=== PATIENT | male | born 1950 | race Caucasian/White ===

== ENCOUNTER 2016-11-01 12:01 | Inpatient (IN) | payer OTHER ==
[2016-11-01 12:36] VITALS: BMI 25.0
--- NOTE | 2016-11-01 14:38 | HP ---
CIWA Score - CIWA Score Nausea/Vomitin-No Nausea/No Vomiting Muscle Tremors: 4-Moderate,w/Arms Extend Anxiety: 4-Mod. Anxious/Guarded Agitation: 4-Moderately Restless Paroxysmal Sweats: 3 Orientation: 0-Oriented Tacttile Disturbances: 0-None Auditory Disturbances: 0-None Visual Disturbances: 0-None Headache: 1-Very Mild CIWA-Ar Total Score: 16 Admission ROS BHS - HPI Chief Complaint: I am here to detox. Allergies/Adverse Reactions: Allergies Allergy/AdvReac Type Severity Reaction Status Date / Time No Known Allergies Allergy Verified 11/01/16 12:45 History of Present Illness: pt is a 66yr old male with a history of alcohol dependence seeking detox for treatment. Exam Limitations: No Limitations - Ebola screening Have you traveled outside of the country in the last 21 days: No Have you had contact with anyone from an Ebola affected area: No Have you been sick,other than usual withdrawal symptoms: No Do you have a fever: No - Review of Systems Constitutional: Chills, Diaphoresis, Loss of Appetite, Night Sweats, Unintentional Wgt. Loss EENT: reports: No Symptoms Reported Respiratory: reports: No Symptoms reported Cardiac: reports: No Symptoms Reported GI: reports: Poor Appetite, Poor Fluid Intake : reports: No Symptoms Reported Musculoskeletal: reports: No Symptoms Reported Integumentary: reports: Flushing, Sweating Neuro: reports: Tingling, Tremors Endocrine: reports: Excessive Sweating, Flushing, Intolerance to Cold, Intolerance to Heat Hematology: reports: No Symptoms Reported Psychiatric: reports: Judgement Intact, Orientated x3, Agitated, Anxious Other Systems: Reviewed and Negative Patient History - Patient Medical History Hx Anemia: No Hx Asthma: No Hx Chronic Obstructive Pulmonary Disease (COPD): No Hx Cancer: No Hx Cardiac Disorders: No Hx Congestive Heart Failure: No Hx Hypertension: Yes (lisinopril/ HTCZ 05/19.5) Hx Hypercholesterolemia: No Hx Pacemaker: No HX Cerebrovascular Accident: No Hx Seizures: No Hx Dementia: No Hx Diabetes: No Hx Gastrointestinal Disorders: No Hx Liver Disease: Yes (elevated LFTs) Hx Genitourinary Disorders: No Hx Sexually Transmitted Disorders: No Hx Renal Disease (ESRD): No Hx Thyroid Disease: No Hx Human Immunodeficiency Virus (HIV): No (NEGATIVE HX) Hx Hepatitis C: Yes (on treatment pt kem his own medicaiton) Hx Depression: No Hx Suicide Attempt: No (denies) Hx Bipolar Disorder: No Hx Schizophrenia: No - Patient Surgical History Past Surgical History: No Hx Neurologic Surgery: No Hx Cataract Extraction: No Hx Cardiac Surgery: No Hx Lung Surgery: No Hx Breast Surgery: No Hx Breast Biopsy: No Hx Abdominal Surgery: No Hx Appendectomy: No Hx Cholecystectomy: No Hx Genitourinary Surgery: No Hx Section: No Hx Orthopedic Surgery: No Anesthesia Reaction: No - PPD History Previous Implant?: Yes Documented Results: Negative w/o proof Implanted On Prior R Admission?: Yes PPD to be Administered?: Yes - Reproductive History Patient is a Female of Child Bearing Age (11 -55 yrs old): No - Smoking Cessation Smoking history: Current every day smoker Have you smoked in the past 12 months: Yes Aproximately how many cigarettes per day: 20 Hx Chewing Tobacco Use: No Initiated information on smoking cessation: Yes 'Breaking Loose' booklet given: 11/01/16 - Substance & Tx. History Hx Alcohol Use: Yes Hx Substance Use: Yes Substance Use Type: Alcohol, Marijuana - Substances Abused Alcohol Route: Oral Frequency: Daily Amount used: beer(6-24oz cans) Age of first use: 26 Date of Last Use: 11/01/16 Marijuana/Hashish Route: Smoking Frequency: Daily Amount used: $5 Age of first use: 26 Date of Last Use: 10/31/16 Family Disease History - Family Disease History Family Disease History: Heart Disease: Father ([place]), Other: Mother (, old age) Admission Physical Exam S - Vital Signs Vital Signs: Vital Signs - 24 hr 11/01/16 12:34 Temperature 97.7 F Pulse Rate 72 Respiratory 18 Rate Blood Pressure 147/82 - Physical General Appearance: Yes: Appropriately Dressed, Moderate Distress, Tremorous, Irritable, Sweating, Anxious HEENTM: Yes: Normal Voice Respiratory: Yes: Lungs Clear, Normal Breath Sounds, No Respiratory Distress Neck: Yes: No masses,lesions,Nodules Breast: Yes: Within Normal Limits Cardiology: Yes: Regular Rhythm, Regular Rate, S1, S2 Abdominal: Yes: Normal Bowel Sounds, Non Tender, Soft Genitourinary: Yes: Within Normal Limits Back: Yes: Normal Inspection Musculoskeletal: Yes: full range of Motion Extremities: Yes: Normal Capillary Refill, Non-Tender, Tremors Neurological: Yes: Fully Oriented, Alert, Normal Response Integumentary: Yes: Normal Color Lymphatic: Yes: Within Normal Limits - Diagnostic (1) Alcohol dependence with uncomplicated withdrawal Current Visit: Yes Status: Chronic (2) Nicotine dependence Current Visit: Yes Status: Chronic Qualifiers: Nicotine product type: cigarettes Substance use status: uncomplicated Qualified Code(s): F17.210 - Nicotine dependence, cigarettes, uncomplicated (3) Hepatitis-C Current Visit: Yes Status: Chronic Qualifiers: Viral hepatitis chronicity: chronic Hepatic coma status: without hepatic coma Qualified Code(s): B18.2 - Chronic viral hepatitis C Comment: pt brought in his own medication to continue hep c treatment. Cleared for Admission [facility] - Detox or Rehab [facility] Level of Care: Medically Managed Detox Regimen/Protocol: Librium [facility] Breath Alcohol Content Breath Alcohol Content: 0 Urine Drug Screen - Results Drug Screen Negative: No Urine Drug Screen Results: THC-Marijuana
[2016-11-01] MEDS ORDERED: IBUPROFEN 400 MG TABLET (FP) PO PRN (14:40)
[2016-11-01] MEDS ORDERED: MAG HYDROX/AL HYDROX/SIMETH 30 ML UNIT-DOSE CUP PO PRN (14:40)
[2016-11-01] MEDS ORDERED: guaiFENesin/D-METHORPHAN HB 10 ML UNIT-DOSE CUPS PO PRN (14:40)
[2016-11-01] MEDS ORDERED: NICOTINE POLACRILEX 4 MG GUM BUC PRN (14:40)
[2016-11-01] MEDS ORDERED: MAGNESIUM HYDROX 2400MG/30ML ORAL SUSPENSION 30 ML CUP PO PRN (14:40)
[2016-11-01] MEDS ORDERED: MAGNESIUM CITRATE 300 ML BOTTLE PO PRN (14:40)
[2016-11-01] MEDS ORDERED: chlordiazePOXIDE HCL 25 MG CAPSULE PO PRN (14:40)
[2016-11-01] MEDS ORDERED: ACETAMINOPHEN 325 MG TABLET (FP) PO PRN (14:40)
[2016-11-01] MEDS ORDERED: P-EPHED 60MG/TRIPROLIDI 2.5MG TABLET PO PRN (14:40)
[2016-11-01] MEDS ORDERED: LOPERAMIDE HCL 2 MG CAPSULE PO PRN (14:40)
[2016-11-01] MEDS ORDERED: hydrOXYzine PAMOATE 50 MG CAPSULE (FP) PO PRN (14:40)
[2016-11-01] MEDS ORDERED: MENTHOL/PHENOL 1 EACH UD MM PRN (14:40)
[2016-11-01] MEDS ORDERED: chlordiazePOXIDE HCL 25 MG CAPSULE PO ONE (15:16)
[2016-11-01 17:09] LABS: URINE APPEARANCE CLEAR; URINE BILIRUBIN NEGATIVE (NEGATIVE); URINE BLOOD NEGATIVE (NEGATIVE); URINE COLOR YELLOW; URINE GLUCOSE (UA) NEGATIVE (NEGATIVE); URINE KETONE NEGATIVE (NEGATIVE); URINE LEUK ESTERASE NEGATIVE (NEGATIVE); URINE NITRITE NEGATIVE (NEGATIVE); URINE PROTEIN NEGATIVE (NEGATIVE); URINE UROBILINOGEN NEGATIVE E.U./dl (0.2-1.0)
[2016-11-01] MEDS: chlordiazePOXIDE HCL 25 MG CAPSULE PO SCH ×2 (17:14→22:33)
--- NOTE | 2016-11-01 19:13 | PN ---
BHS Progress Note Note: RECEIVED NURSE INFORMED REQUESTS NICOTINE PATCH 21 MG PATCH NICOTINE REPLACEMENT X 1 CONTINUE DETOX
[2016-11-01] MEDS: NICOTINE 21 MG/24 HOURS TOPICAL PATCH TD SCH (20:35)
[2016-11-01] MEDS: THIAMINE HCL 100 MG TABLET (FP) PO SCH (22:33)
[2016-11-02] MEDS: chlordiazePOXIDE HCL 25 MG CAPSULE PO SCH ×4 (05:16→22:28)
[2016-11-02] MEDS ORDERED: PATIENT'S OWN MEDICATION (NON-FORMULARY) (Lisinopril/Hydrochlorothiazide [Lisinopril-Hctz PO SCH (10:00)
[2016-11-02] MEDS ORDERED: NICOTINE 21 MG/24 HOURS TOPICAL PATCH TD SCH (10:00)
[2016-11-02 10:04] LABS: MCH 32.7 pg (25.7-33.7); MCHC 34.1 g/dl (32.0-35.9); MEAN CELL VOLUME 95.7 fl (80-96); MEAN PLT VOLUME 9.7 fl (7.5-11.1); PLATELET COUNT 156 K/MM3 (134-434); RDW 13.4 % (11.9-15.9)
[2016-11-02 10:09] LABS: ALBUMIN 3.4 g/dl (3.4-5.0); ALK PHOS 111 U/L (45-117); ANION GAP 10 (8-16); BILIRUBIN,TOTAL 0.8 mg/dL (0.2-1.0); CALCIUM 8.8 mg/dL (8.5-10.1); CO2 28 mmol/L (21-32); CREATININE 0.9 mg/dL (0.7-1.3); GLUCOSE,RANDOM 109 mg/dL (74-106); SGOT/AST 39 U/L (15-37); SGPT/ALT 42 U/L (12-78); TOT PROT 8.1 g/dl (6.4-8.2)
[2016-11-02] MEDS: PATIENT'S OWN MEDICATION (NON-FORMULARY) (Elbasvir/Grazoprevir [Zepatier 50-100 Mg Tablet] PO SCH (10:25)
[2016-11-02] MEDS: PRENATAL VITAMINS W/ FOLIC ACID TABLET (FP) PO SCH (10:25)
[2016-11-02] MEDS: HYDROCHLOROTHIAZIDE 12.5 MG CAPSULE (FP) PO SCH (10:25)
[2016-11-02] MEDS: LISINOPRIL 10 MG TABLET (FP) PO SCH (10:25)
--- NOTE | 2016-11-02 10:25 | PN ---
[facility] CIWA - CIWA Score Nausea/Vomitin-No Nausea/No Vomiting Muscle Tremors: 4-Moderate,w/Arms Extend Anxiety: 4-Mod. Anxious/Guarded Agitation: 4-Moderately Restless Paroxysmal Sweats: 1-Minimal Palms Moist Orientation: 0-Oriented Tacttile Disturbances: 3-Moderate Itch/Numb/Burn Auditory Disturbances: 0-None Visual Disturbances: 0-None Headache: 0-None Present CIWA-Ar Total Score: 16 BHS Progress Note (SOAP) Subjective: DECREASED ANXIETY,TREMORS,SWEATS. Objective: 11/02/16 10:24 Vital Signs Temperature 98.1 F 11/02/16 06:10 Pulse Rate 59 L 11/02/16 07:04 Respiratory Rate 16 11/02/16 06:10 Blood Pressure 129/70 11/02/16 07:04 O2 Sat by Pulse Oximetry (%) Laboratory Last Values Sodium 138 mmol/L (136-145) 11/02/16 06:00 Potassium 3.6 mmol/L (3.5-5.1) 11/02/16 06:00 Chloride 100 mmol/L (98-107) 11/02/16 06:00 Carbon Dioxide 28 mmol/L (21-32) 11/02/16 06:00 Anion Gap 10 (8-16) 11/02/16 06:00 BUN 7 mg/dL (7-18) 11/02/16 06:00 Creatinine 0.9 mg/dL (0.7-1.3) 11/02/16 06:00 Creat Clearance w eGFR > 60 (>60) 11/02/16 06:00 Random Glucose 109 mg/dL (74-106) H D 11/02/16 06:00 Calcium 8.8 mg/dL (8.5-10.1) 11/02/16 06:00 Total Bilirubin 0.8 mg/dL (0.2-1.0) 11/02/16 06:00 AST 39 U/L (15-37) H D 11/02/16 06:00 ALT 42 U/L (12-78) D 11/02/16 06:00 Alkaline Phosphatase 111 U/L (45-117) 11/02/16 06:00 Total Protein 8.1 g/dl (6.4-8.2) 11/02/16 06:00 Albumin 3.4 g/dl (3.4-5.0) D 11/02/16 06:00 Urine Color Yellow 11/01/16 14:00 Urine Appearance Clear 11/01/16 14:00 Urine pH 7.0 (5.0-8.0) 11/01/16 14:00 Ur Specific [place] 1.011 (1.001-1.035) 11/01/16 14:00 Urine Protein Negative (NEGATIVE) 11/01/16 14:00 Urine Glucose (UA) Negative (NEGATIVE) 11/01/16 14:00 Urine Ketones Negative (NEGATIVE) 11/01/16 14:00 Urine Blood Negative (NEGATIVE) 11/01/16 14:00 Urine Nitrite Negative (NEGATIVE) 11/01/16 14:00 Urine Bilirubin Negative (NEGATIVE) 11/01/16 14:00 Urine Urobilinogen Negative E.U./dl (0.2-1.0) 11/01/16 14:00 Ur Leukocyte Esterase Negative (NEGATIVE) 11/01/16 14:00 Assessment: 11/02/16 10:25 WITHDRAWAL SX Plan: CONTINUE DETOX
[2016-11-02] MEDS: NICOTINE 21 MG/24 HOURS TOPICAL PATCH TD SCH (10:26)
--- NOTE | 2016-11-02 13:43 | EKG ---
Test Reason : Blood Pressure : / mmHG Vent. Rate : 071 BPM Atrial Rate : 071 BPM P-R Int : 146 ms QRS Dur : 108 ms QT Int : 424 ms P-R-T Axes : 082 069 071 degrees QTc Int : 460 ms NORMAL SINUS RHYTHM POSSIBLE LEFT ATRIAL ENLARGEMENT INCOMPLETE RIGHT BUNDLE BRANCH BLOCK BORDERLINE ECG NO PREVIOUS ECGS AVAILABLE Confirmed by ESTEBAN COCHRAN, STACIA ([id number]) on 11/02/2016 1:42:57 PM Referred By: Harshal Castillo Confirmed By:STACIA ORELLANA MD
[2016-11-02] MEDS: THIAMINE HCL 100 MG TABLET (FP) PO SCH (22:28)
[2016-11-03] MEDS: chlordiazePOXIDE HCL 25 MG CAPSULE PO SCH ×2 (05:49→10:33)
[2016-11-03] MEDS: PRENATAL VITAMINS W/ FOLIC ACID TABLET (FP) PO SCH (10:33)
[2016-11-03] MEDS: PATIENT'S OWN MEDICATION (NON-FORMULARY) (Elbasvir/Grazoprevir [Zepatier 50-100 Mg Tablet] PO SCH (10:33)
[2016-11-03] MEDS: HYDROCHLOROTHIAZIDE 12.5 MG CAPSULE (FP) PO SCH (10:33)
[2016-11-03] MEDS: LISINOPRIL 10 MG TABLET (FP) PO SCH (10:33)
[2016-11-03] MEDS: NICOTINE 21 MG/24 HOURS TOPICAL PATCH TD SCH (10:34)
--- NOTE | 2016-11-03 11:47 | PN ---
[facility] CIWA - CIWA Score Nausea/Vomitin-No Nausea/No Vomiting Muscle Tremors: 4-Moderate,w/Arms Extend Anxiety: 4-Mod. Anxious/Guarded Agitation: 4-Moderately Restless Paroxysmal Sweats: 1-Minimal Palms Moist Orientation: 0-Oriented Tacttile Disturbances: 3-Moderate Itch/Numb/Burn Auditory Disturbances: 0-None Visual Disturbances: 0-None Headache: 0-None Present CIWA-Ar Total Score: 16 S Progress Note (SOAP) Subjective: DECREASED ANXIETY,SWEATS. DETOX PROCEEDING WELL. Objective: 11/03/16 11:46 Vital Signs Temperature 95.2 F L 11/03/16 09:08 Pulse Rate 77 11/03/16 09:08 Respiratory Rate 20 11/03/16 09:08 Blood Pressure 126/81 11/03/16 09:08 O2 Sat by Pulse Oximetry (%) Laboratory Last Values WBC 8.0 K/mm3 (4.0-10.0) D 11/02/16 06:00 RBC 4.76 M/mm3 (4.00-5.60) 11/02/16 06:00 Hgb 15.6 GM/dL (11.7-16.9) 11/02/16 06:00 Hct 45.6 % (35.4-49) 11/02/16 06:00 MCV 95.7 fl (80-96) 11/02/16 06:00 MCHC 34.1 g/dl (32.0-35.9) 11/02/16 06:00 RDW 13.4 % (11.9-15.9) 11/02/16 06:00 Plt Count 156 K/MM3 (134-434) 11/02/16 06:00 MPV 9.7 fl (7.5-11.1) 11/02/16 06:00 Sodium 138 mmol/L (136-145) 11/02/16 06:00 Potassium 3.6 mmol/L (3.5-5.1) 11/02/16 06:00 Chloride 100 mmol/L (98-107) 11/02/16 06:00 Carbon Dioxide 28 mmol/L (21-32) 11/02/16 06:00 Anion Gap 10 (8-16) 11/02/16 06:00 BUN 7 mg/dL (7-18) 11/02/16 06:00 Creatinine 0.9 mg/dL (0.7-1.3) 11/02/16 06:00 Creat Clearance w eGFR > 60 (>60) 11/02/16 06:00 Random Glucose 109 mg/dL (74-106) H D 11/02/16 06:00 Calcium 8.8 mg/dL (8.5-10.1) 11/02/16 06:00 Total Bilirubin 0.8 mg/dL (0.2-1.0) 11/02/16 06:00 AST 39 U/L (15-37) H D 11/02/16 06:00 ALT 42 U/L (12-78) D 11/02/16 06:00 Alkaline Phosphatase 111 U/L (45-117) 11/02/16 06:00 Total Protein 8.1 g/dl (6.4-8.2) 11/02/16 06:00 Albumin 3.4 g/dl (3.4-5.0) D 11/02/16 06:00 Urine Color Yellow 11/01/16 14:00 Urine Appearance Clear 11/01/16 14:00 Urine pH 7.0 (5.0-8.0) 11/01/16 14:00 Ur Specific [place] 1.011 (1.001-1.035) 11/01/16 14:00 Urine Protein Negative (NEGATIVE) 11/01/16 14:00 Urine Glucose (UA) Negative (NEGATIVE) 11/01/16 14:00 Urine Ketones Negative (NEGATIVE) 11/01/16 14:00 Urine Blood Negative (NEGATIVE) 11/01/16 14:00 Urine Nitrite Negative (NEGATIVE) 11/01/16 14:00 Urine Bilirubin Negative (NEGATIVE) 11/01/16 14:00 Urine Urobilinogen Negative E.U./dl (0.2-1.0) 11/01/16 14:00 Ur Leukocyte Esterase Negative (NEGATIVE) 11/01/16 14:00 RPR Titer Nonreactive (NONREACTIVE) 11/02/16 06:00 Assessment: 11/03/16 11:46 WITHDRAWAL SX Plan: CONTINUE DETOX
[2016-11-03] MEDS: chlordiazePOXIDE 5 MG CAPSULE PO SCH ×2 (17:41→22:32)
[2016-11-03] MEDS: diphenhydrAMINE HCL 50 MG CAPSULE PO PRN (22:32)
[2016-11-03] MEDS: THIAMINE HCL 100 MG TABLET (FP) PO SCH (22:32)
[2016-11-04] MEDS: chlordiazePOXIDE 5 MG CAPSULE PO SCH ×2 (06:02→10:22)
[2016-11-04] MEDS: PRENATAL VITAMINS W/ FOLIC ACID TABLET (FP) PO SCH (10:22)
[2016-11-04] MEDS: PATIENT'S OWN MEDICATION (NON-FORMULARY) (Elbasvir/Grazoprevir [Zepatier 50-100 Mg Tablet] PO SCH (10:22)
[2016-11-04] MEDS: NICOTINE 21 MG/24 HOURS TOPICAL PATCH TD SCH (10:22)
[2016-11-04] MEDS: LISINOPRIL 10 MG TABLET (FP) PO SCH (10:22)
[2016-11-04] MEDS: HYDROCHLOROTHIAZIDE 12.5 MG CAPSULE (FP) PO SCH (10:22)
--- NOTE | 2016-11-04 15:23 | PN ---
BHS Progress Note (SOAP) Subjective: Sweating,interrupted sleep,restless Objective: 11/04/16 15:21 Vital Signs - 8 hr 11/04/16 11/04/16 09:25 14:15 Temperature 95.8 F L 96.7 F L Pulse Rate 66 66 Respiratory 18 18 Rate Blood Pressure 138/87 141/80 Laboratory Last Values WBC 8.0 K/mm3 (4.0-10.0) D 11/02/16 06:00 RBC 4.76 M/mm3 (4.00-5.60) 11/02/16 06:00 Hgb 15.6 GM/dL (11.7-16.9) 11/02/16 06:00 Hct 45.6 % (35.4-49) 11/02/16 06:00 MCV 95.7 fl (80-96) 11/02/16 06:00 MCHC 34.1 g/dl (32.0-35.9) 11/02/16 06:00 RDW 13.4 % (11.9-15.9) 11/02/16 06:00 Plt Count 156 K/MM3 (134-434) 11/02/16 06:00 MPV 9.7 fl (7.5-11.1) 11/02/16 06:00 Sodium 138 mmol/L (136-145) 11/02/16 06:00 Potassium 3.6 mmol/L (3.5-5.1) 11/02/16 06:00 Chloride 100 mmol/L (98-107) 11/02/16 06:00 Carbon Dioxide 28 mmol/L (21-32) 11/02/16 06:00 Anion Gap 10 (8-16) 11/02/16 06:00 BUN 7 mg/dL (7-18) 11/02/16 06:00 Creatinine 0.9 mg/dL (0.7-1.3) 11/02/16 06:00 Creat Clearance w eGFR > 60 (>60) 11/02/16 06:00 Random Glucose 109 mg/dL (74-106) H D 11/02/16 06:00 Calcium 8.8 mg/dL (8.5-10.1) 11/02/16 06:00 Total Bilirubin 0.8 mg/dL (0.2-1.0) 11/02/16 06:00 AST 39 U/L (15-37) H D 11/02/16 06:00 ALT 42 U/L (12-78) D 11/02/16 06:00 Alkaline Phosphatase 111 U/L (45-117) 11/02/16 06:00 Total Protein 8.1 g/dl (6.4-8.2) 11/02/16 06:00 Albumin 3.4 g/dl (3.4-5.0) D 11/02/16 06:00 Urine Color Yellow 11/01/16 14:00 Urine Appearance Clear 11/01/16 14:00 Urine pH 7.0 (5.0-8.0) 11/01/16 14:00 Ur Specific [place] 1.011 (1.001-1.035) 11/01/16 14:00 Urine Protein Negative (NEGATIVE) 11/01/16 14:00 Urine Glucose (UA) Negative (NEGATIVE) 11/01/16 14:00 Urine Ketones Negative (NEGATIVE) 11/01/16 14:00 Urine Blood Negative (NEGATIVE) 11/01/16 14:00 Urine Nitrite Negative (NEGATIVE) 11/01/16 14:00 Urine Bilirubin Negative (NEGATIVE) 11/01/16 14:00 Urine Urobilinogen Negative E.U./dl (0.2-1.0) 11/01/16 14:00 Ur Leukocyte Esterase Negative (NEGATIVE) 11/01/16 14:00 RPR Titer Nonreactive (NONREACTIVE) 11/02/16 06:00 labs noted Assessment: 11/04/16 15:22 Withdrawal sx. Plan: Continue detox
[2016-11-04] MEDS: chlordiazePOXIDE HCL 10 MG CAPSULE PO SCH ×2 (17:20→22:41)
[2016-11-04] MEDS: THIAMINE HCL 100 MG TABLET (FP) PO SCH (22:41)
[2016-11-04] MEDS: diphenhydrAMINE HCL 50 MG CAPSULE PO PRN (22:41)
[2016-11-05] MEDS: chlordiazePOXIDE HCL 10 MG CAPSULE PO SCH (05:22)
[2016-11-05 06:37] VITALS: TEMP 96.2
[2016-11-05 07:36] VITALS: BP 134/76; PULSE 52
--- NOTE | 2016-11-05 13:53 | DS ---
[facility] Detox Discharge Summary Admission Date: 11/01/16 Discharge Date: 11/05/16 - History Present History: Alcohol Dependence Additional Comments: ADVISED PATIENT TO FOLLOW-UP WITH [facility] / REHAB MEDICAL PROVIDER AFTER DISCHARGE FROM DETOX FOR GENERAL MEDICAL ASSESSMENT AND FOR ANY ABNORMAL ADMISSION LAB VALUES. Pertinent Past History: Hep C, HTN. - Physical Exam Results Vital Signs: Vital Signs Temperature 96.2 F L 11/05/16 06:37 Pulse Rate 52 L 11/05/16 07:36 Respiratory Rate 18 11/05/16 06:37 Blood Pressure 134/76 11/05/16 07:36 O2 Sat by Pulse Oximetry (%) Pertinent Admission Physical Exam Findings: WITHDRAWAL SYMPTOMS. Laboratory Last Values WBC 8.0 K/mm3 (4.0-10.0) D 11/02/16 06:00 RBC 4.76 M/mm3 (4.00-5.60) 11/02/16 06:00 Hgb 15.6 GM/dL (11.7-16.9) 11/02/16 06:00 Hct 45.6 % (35.4-49) 11/02/16 06:00 MCV 95.7 fl (80-96) 11/02/16 06:00 MCHC 34.1 g/dl (32.0-35.9) 11/02/16 06:00 RDW 13.4 % (11.9-15.9) 11/02/16 06:00 Plt Count 156 K/MM3 (134-434) 11/02/16 06:00 MPV 9.7 fl (7.5-11.1) 11/02/16 06:00 Sodium 138 mmol/L (136-145) 11/02/16 06:00 Potassium 3.6 mmol/L (3.5-5.1) 11/02/16 06:00 Chloride 100 mmol/L (98-107) 11/02/16 06:00 Carbon Dioxide 28 mmol/L (21-32) 11/02/16 06:00 Anion Gap 10 (8-16) 11/02/16 06:00 BUN 7 mg/dL (7-18) 11/02/16 06:00 Creatinine 0.9 mg/dL (0.7-1.3) 11/02/16 06:00 Creat Clearance w eGFR > 60 (>60) 11/02/16 06:00 Random Glucose 109 mg/dL (74-106) H D 11/02/16 06:00 Calcium 8.8 mg/dL (8.5-10.1) 11/02/16 06:00 Total Bilirubin 0.8 mg/dL (0.2-1.0) 11/02/16 06:00 AST 39 U/L (15-37) H D 11/02/16 06:00 ALT 42 U/L (12-78) D 11/02/16 06:00 Alkaline Phosphatase 111 U/L (45-117) 11/02/16 06:00 Total Protein 8.1 g/dl (6.4-8.2) 11/02/16 06:00 Albumin 3.4 g/dl (3.4-5.0) D 11/02/16 06:00 Urine Color Yellow 11/01/16 14:00 Urine Appearance Clear 11/01/16 14:00 Urine pH 7.0 (5.0-8.0) 11/01/16 14:00 Ur Specific [place] 1.011 (1.001-1.035) 11/01/16 14:00 Urine Protein Negative (NEGATIVE) 11/01/16 14:00 Urine Glucose (UA) Negative (NEGATIVE) 11/01/16 14:00 Urine Ketones Negative (NEGATIVE) 11/01/16 14:00 Urine Blood Negative (NEGATIVE) 11/01/16 14:00 Urine Nitrite Negative (NEGATIVE) 11/01/16 14:00 Urine Bilirubin Negative (NEGATIVE) 11/01/16 14:00 Urine Urobilinogen Negative E.U./dl (0.2-1.0) 11/01/16 14:00 Ur Leukocyte Esterase Negative (NEGATIVE) 11/01/16 14:00 RPR Titer Nonreactive (NONREACTIVE) 11/02/16 06:00 LABS NOTED. - Treatment Hospital Course: Detox Protocol Followed, Detoxed Safely, Responded well, Discharged Condition Good Patient has Accepted a Rehab Referral to: NO - PT. ELECTING TO GO HOME AT THIS TIME. 12-STEP / AA PROGRAM RECOMMENDED - Medication Discharge Medications: Ambulatory Orders Elbasvir/Grazoprevir [Zepatier 50-100 mg Tablet] 1 each PO DAILY 11/01/16 Lisinopril/Hydrochlorothiazide [Lisinopril-Hctz 10-12.5 mg Tab] 1 each PO DAILY 11/01/16 - Diagnosis (1) Alcohol dependence with uncomplicated withdrawal Status: Acute (2) Hepatitis-C Status: Chronic Qualifiers: Viral hepatitis chronicity: chronic Hepatic coma status: without hepatic coma Qualified Code(s): B18.2 - Chronic viral hepatitis C (3) Nicotine dependence Status: Chronic Qualifiers: Nicotine product type: cigarettes Substance use status: uncomplicated Qualified Code(s): F17.210 - Nicotine dependence, cigarettes, uncomplicated - AMA Did Patient Leave Against Medical Advice: No
== END 2016-11-05 09:10 | disposition home or self-care (01) | DRG 897 ==
LOC: YASAS 12:01 → Y3N 13:58
PROVIDERS: ADMIT Internal Medicine; ATTEND Internal Medicine
PROC: HZ2ZZZZ Detoxification Services for Substance Abuse Treatment (ICD-10-PCS; principal; 2016-11-01)
DX: F10.230 Alcohol dependence with withdrawal, uncomplicated (principal); F12.20 Cannabis dependence, uncomplicated; F17.210 Nicotine dependence, cigarettes, uncomplicated; B18.2 Chronic viral hepatitis C; I10 Essential (primary) hypertension
CPT/HCPCS: 36415; 80053; 81003; 85027; 86593; 93005; 93010

== ENCOUNTER 2017-09-19 11:28 | Inpatient (IN) | payer OTHER ==
[2017-09-19 11:45] VITALS: BMI 24.2
--- NOTE | 2017-09-19 14:05 | HP ---
CIWA Score - CIWA Score Nausea/Vomitin Muscle Tremors: 3 Anxiety: 3 Agitation: 3 Paroxysmal Sweats: 2 Orientation: 0-Oriented Tacttile Disturbances: 2-Mild Itch/Numbness/Burn Auditory Disturbances: 2-Mild Harshness/Frighten Visual Disturbances: 0-None Headache: 2-Mild CIWA-Ar Total Score: 20 Admission ROS BHS - HPI Chief Complaint: I NEED HELP TO STOP DRINK ALCOHOL Allergies/Adverse Reactions: Allergies Allergy/AdvReac Type Severity Reaction Status Date / Time No Known Allergies Allergy Verified 09/19/17 13:21 History of Present Illness: THIS 66 YEARS OLD MALE WITH ALCOHOL DEPENDENCE,SEEKING DETOX,WITHDRAWAL SYMPTOM, LAST DETOX /TO 11/05/16 SYCOPE HTN NO MEDICATION HEPATITIS C TREATED NICOTINE DEPENDENCE LONGEST PERIOD OF SOBRIETY 13 MONTHS Exam Limitations: No Limitations - Ebola screening Have you traveled outside of the country in the last 21 days: No Have you had contact with anyone from an Ebola affected area: No Have you been sick,other than usual withdrawal symptoms: No Do you have a fever: No - Review of Systems Constitutional: Loss of Appetite, Malaise, Night Sweats, Changes in sleep, Weakness, Unintentional Wgt. Loss EENT: reports: Tearing, Nose Congestion Respiratory: reports: No Symptoms reported Cardiac: reports: No Symptoms Reported GI: reports: Nausea, Vomiting, Abdominal cramping Musculoskeletal: reports: Back Pain, Muscle Pain Integumentary: reports: Dryness Neuro: reports: Headache, Tremors Endocrine: reports: No Symptoms Reported Hematology: reports: No Symptoms Reported Psychiatric: reports: No Sypmtoms Reported, Judgement Intact, Mood/Affect Appropiate, Orientated x3 Patient History - Patient Medical History Hx Anemia: No Hx Asthma: No Hx Chronic Obstructive Pulmonary Disease (COPD): No Hx Cancer: No Hx Cardiac Disorders: No Hx Congestive Heart Failure: No Hx Hypertension: Yes (NO MEDICATION) Hx Hypercholesterolemia: No Hx Pacemaker: No HX Cerebrovascular Accident: No Hx Seizures: No Hx Dementia: No Hx Diabetes: No Hx Gastrointestinal Disorders: No Hx Liver Disease: Yes (elevated LFTs) Hx Genitourinary Disorders: No Hx Sexually Transmitted Disorders: No Hx Renal Disease (ESRD): No Hx Thyroid Disease: No Hx Human Immunodeficiency Virus (HIV): No (NEGATIVE HX 2016) Hx Hepatitis C: Yes (TREATED) Hx Depression: No Hx Suicide Attempt: No Hx Bipolar Disorder: No Hx Schizophrenia: No Other Medical History: NO SUICIDAL,NO HOMICIDAL - Patient Surgical History Past Surgical History: No Hx Neurologic Surgery: No Hx Cataract Extraction: No Hx Cardiac Surgery: No Hx Lung Surgery: No Hx Breast Surgery: No Hx Breast Biopsy: No Hx Abdominal Surgery: No Hx Appendectomy: No Hx Cholecystectomy: No Hx Genitourinary Surgery: No Hx Section: No Hx Orthopedic Surgery: No Anesthesia Reaction: No - PPD History Previous Implant?: Yes Documented Results: Negative w/proof Implanted On Prior [facility] Admission?: Yes Date: 11/03/16 Results: 0 mm PPD to be Administered?: No - Smoking Cessation Smoking history: Current every day smoker Have you smoked in the past 12 months: Yes Aproximately how many cigarettes per day: 20 Hx Chewing Tobacco Use: No Initiated information on smoking cessation: Yes 'Breaking Loose' booklet given: 09/19/17 - Substance & Tx. History Hx Alcohol Use: Yes Hx Substance Use: No Substance Use Type: Alcohol Hx Substance Use Treatment: Yes ([facility] 11/01/16 TO 11/05/16) - Substances Abused Alcohol-beer Route: Oral Frequency: Daily Amount used: 2-6 pks. Age of first use: 26 Date of Last Use: 09/19/17 Marijuana Route: Smoking Frequency: Daily Amount used: $5 Age of first use: 26 Date of Last Use: 09/19/17 Family Disease History - Family Disease History Family Disease History: Heart Disease: Father ([place]), Other: Mother (, old age) Admission Physical Exam S - Vital Signs Vital Signs: Vital Signs - 24 hr 09/19/17 11:42 Temperature 96.0 F L Pulse Rate 64 Respiratory 18 Rate Blood Pressure 149/84 - Physical General Appearance: Yes: Moderate Distress, Tremorous, Irritable, Sweating, Anxious HEENTM: Yes: Normal ENT Inspection, RODY, Pharynx Normal Respiratory: Yes: Lungs Clear, Normal Breath Sounds, No Respiratory Distress Neck: Yes: Within Normal Limits, Supple, Trachea in good position Breast: Yes: Within Normal Limits Cardiology: Yes: Within Normal Limits, Regular Rate, S1, S2 Abdominal: Yes: Within Normal Limits, Normal Bowel Sounds, Non Tender, Flat, Soft Genitourinary: Yes: Within Normal Limits Back: Yes: Within Normal Limits Extremities: Yes: Within Normal Limits, Normal Range of Motion, Tremors Neurological: Yes: 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 (3) Nicotine dependence Current Visit: No Status: Chronic Qualifiers: Nicotine product type: cigarettes Substance use status: uncomplicated Qualified Code(s): F17.210 - Nicotine dependence, cigarettes, uncomplicated (4) Hypertension Current Visit: Yes Status: Acute (5) Weight loss Current Visit: Yes Status: Acute (6) Cannabis dependence Current Visit: Yes Status: Acute Cleared for Admission [facility] - Detox or Rehab [facility] Level of Care: Medically Managed Detox Regimen/Protocol: Librium [facility] Breath Alcohol Content Breath Alcohol Content: 0 Urine Drug Screen - Results Drug Screen Negative: No Urine Drug Screen Results: THC-Marijuana, BZO-Benzodiazepines
[2017-09-19] MEDS ORDERED: MAGNESIUM CITRATE 300 ML BOTTLE PO PRN (14:18)
[2017-09-19] MEDS ORDERED: MAGNESIUM HYDROX 2400MG/30ML ORAL SUSPENSION 30 ML CUP PO PRN (14:18)
[2017-09-19] MEDS ORDERED: MENTHOL/PHENOL 1 EACH UD MM PRN (14:18)
[2017-09-19] MEDS ORDERED: MAG HYDROX/AL HYDROX/SIMETH 30 ML UNIT-DOSE CUP PO PRN (14:18)
[2017-09-19] MEDS ORDERED: chlordiazePOXIDE HCL 25 MG CAPSULE PO PRN (14:18)
[2017-09-19] MEDS ORDERED: guaiFENesin/D-METHORPHAN HB 10 ML UNIT-DOSE CUPS PO PRN (14:18)
[2017-09-19] MEDS ORDERED: LOPERAMIDE HCL 2 MG CAPSULE PO PRN (14:18)
[2017-09-19] MEDS ORDERED: hydrOXYzine PAMOATE 50 MG CAPSULE (FP) PO PRN (14:18)
[2017-09-19] MEDS ORDERED: IBUPROFEN 400 MG TABLET (FP) PO PRN (14:18)
[2017-09-19] MEDS ORDERED: P-EPHED 60MG/TRIPROLIDI 2.5MG TABLET PO PRN (14:18)
[2017-09-19] MEDS ORDERED: ACETAMINOPHEN 325 MG TABLET (FP) PO PRN (14:18)
[2017-09-19] MEDS ORDERED: chlordiazePOXIDE HCL 25 MG CAPSULE PO ONE (14:34)
[2017-09-19] MEDS: NICOTINE 21 MG/24 HOURS TOPICAL PATCH TD SCH (14:59)
[2017-09-19 17:09] LABS: URINE APPEARANCE SLCLOUDY; URINE BILIRUBIN NEGATIVE (NEGATIVE); URINE BLOOD 1+ (NEGATIVE); URINE COLOR YELLOW; URINE GLUCOSE (UA) NEGATIVE (NEGATIVE); URINE KETONE NEGATIVE (NEGATIVE); URINE LEUK ESTERASE NEGATIVE (NEGATIVE); URINE NITRITE NEGATIVE (NEGATIVE); URINE PROTEIN NEGATIVE (NEGATIVE); URINE UROBILINOGEN NEGATIVE mg/dL (0.2-1.0)
[2017-09-19] MEDS: chlordiazePOXIDE HCL 25 MG CAPSULE PO SCH ×2 (17:26→22:05)
[2017-09-19 17:28] LABS: URINE BACTERIA RARE /hpf (NONE SEEN)
[2017-09-19] MEDS: THIAMINE HCL 100 MG TABLET (FP) PO SCH (22:05)
[2017-09-20] MEDS: chlordiazePOXIDE HCL 25 MG CAPSULE PO SCH ×4 (05:25→22:27)
[2017-09-20 09:52] LABS: HEMATOCRIT 47.5 % (35.4-49); HEMOGLOBIN 16.1 GM/dL (11.7-16.9); MCH 31.8 pg (25.7-33.7); MCHC 33.8 g/dl (32.0-35.9); MEAN CELL VOLUME 93.9 fl (80-96); MEAN PLT VOLUME 8.8 fl (7.5-11.1); PLATELET COUNT 228 K/MM3 (134-434); RBC 5.06 M/mm3 (4.00-5.60); RDW 14.4 % (11.9-15.9); WHITE BLOOD COUNT 10.3 K/mm3 (4.0-10.0)
[2017-09-20 10:24] LABS: ALBUMIN 4.1 g/dl (3.4-5.0); ALK PHOS 112 U/L (45-117); BILIRUBIN,TOTAL 0.6 mg/dL (0.2-1.0); BLOOD UREA NITROGEN 9 mg/dL (7-18); CO2 31 mmol/L (21-32); CREATININE 0.9 mg/dL (0.7-1.3); GLUCOSE,RANDOM 90 mg/dL (74-106); SGOT/AST 34 U/L (15-37); SGPT/ALT 40 U/L (12-78); TOT PROT 8.6 g/dl (6.4-8.2)
--- NOTE | 2017-09-20 10:26 | PN ---
S CIWA - CIWA Score Nausea/Vomitin Muscle Tremors: 3 Anxiety: 3 Agitation: 3 Paroxysmal Sweats: 1-Minimal Palms Moist Orientation: 0-Oriented Tacttile Disturbances: 1-Very Mild Itch/Numbness Auditory Disturbances: 1-Very Mild Visual Disturbances: 0-None Headache: 2-Mild CIWA-Ar Total Score: 17 BHS Progress Note (SOAP) Subjective: ALERT,IRRITABLE,ANXIOUS,INTERRUPTED SLEEP,TREMOR Objective: 09/20/17 10:23 Vital Signs Temperature 97.3 F L 09/20/17 06:19 Pulse Rate 64 09/20/17 06:19 Respiratory Rate 16 09/20/17 06:19 Blood Pressure 112/56 09/20/17 06:19 O2 Sat by Pulse Oximetry (%) EKG SINUS BRADYCARDIA ,INCOMPLETE RBBB RATE 52/MIN NO CHEST PAIN,NO SOB,NO Laboratory Last Values WBC 10.3 K/mm3 (4.0-10.0) H 09/20/17 05:45 RBC 5.06 M/mm3 (4.00-5.60) 09/20/17 05:45 Hgb 16.1 GM/dL (11.7-16.9) 09/20/17 05:45 Hct 47.5 % (35.4-49) 09/20/17 05:45 MCV 93.9 fl (80-96) 09/20/17 05:45 MCH 31.8 pg (25.7-33.7) 09/20/17 05:45 MCHC 33.8 g/dl (32.0-35.9) 09/20/17 05:45 RDW 14.4 % (11.9-15.9) 09/20/17 05:45 Plt Count 228 K/MM3 (134-434) D 09/20/17 05:45 MPV 8.8 fl (7.5-11.1) 09/20/17 05:45 Urine Color Yellow 09/19/17 13:00 Urine Appearance Slcloudy 09/19/17 13:00 Urine pH 6.0 (5.0-8.0) 09/19/17 13:00 Ur Specific [place] 1.009 (1.001-1.035) 09/19/17 13:00 Urine Protein Negative (NEGATIVE) 09/19/17 13:00 Urine Glucose (UA) Negative (NEGATIVE) 09/19/17 13:00 Urine Ketones Negative (NEGATIVE) 09/19/17 13:00 Urine Blood 1+ (NEGATIVE) H 09/19/17 13:00 Urine Nitrite Negative (NEGATIVE) 09/19/17 13:00 Urine Bilirubin Negative (NEGATIVE) 09/19/17 13:00 Urine Urobilinogen Negative mg/dL (0.2-1.0) 09/19/17 13:00 Ur Leukocyte Esterase Negative (NEGATIVE) 09/19/17 13:00 Urine WBC (Auto) <1 /hpf (3-5) 09/19/17 13:00 Urine RBC (Auto) 2 /hpf (0-3) 09/19/17 13:00 Urine Bacteria Rare /hpf (NONE SEEN) 09/19/17 13:00 DIZZINESS 09/20/17 10:25 LABS PENDING Assessment: 09/20/17 10:25 WITHDRAWAL SYMPTOM Plan: CONTINUE DETOX,ENCOURAGE ORAL FLUID
[2017-09-20 10:28] LABS: ANION GAP 5 (8-16); CHLORIDE 99 mmol/L (98-107); POTASSIUM 3.9 mmol/L (3.5-5.1); SODIUM 135 mmol/L (136-145)
[2017-09-20] MEDS: NICOTINE 21 MG/24 HOURS TOPICAL PATCH TD SCH (10:57)
[2017-09-20] MEDS: PRENATAL VITAMINS W/ FOLIC ACID TABLET (FP) PO SCH (10:58)
--- NOTE | 2017-09-20 13:56 | EKG ---
Test Reason : Blood Pressure : / mmHG Vent. Rate : 052 BPM Atrial Rate : 052 BPM P-R Int : 154 ms QRS Dur : 110 ms QT Int : 460 ms P-R-T Axes : 082 080 083 degrees QTc Int : 427 ms SINUS BRADYCARDIA INCOMPLETE RIGHT BUNDLE BRANCH BLOCK BORDERLINE ECG WHEN COMPARED WITH ECG OF 19-SEP-2017 15:44, NO SIGNIFICANT CHANGE WAS FOUND Confirmed by MD Stanton, Jose Francisco ([id number]) on 09/20/2017 1:55:58 PM Referred By: Confirmed By:Jose Francisco Eid MD
--- NOTE | 2017-09-20 14:00 | EKG ---
Test Reason : Blood Pressure : / mmHG Vent. Rate : 054 BPM Atrial Rate : 054 BPM P-R Int : 158 ms QRS Dur : 114 ms QT Int : 466 ms P-R-T Axes : 081 078 080 degrees QTc Int : 441 ms SINUS BRADYCARDIA INCOMPLETE RIGHT BUNDLE BRANCH BLOCK BORDERLINE ECG WHEN COMPARED WITH ECG OF 01-NOV-2016 14:44, NO SIGNIFICANT CHANGE WAS FOUND Confirmed by MD Stanton, Jose Francisco ([id number]) on 09/20/2017 2:00:17 PM Referred By: Confirmed By:Jose Francisco Eid MD
[2017-09-20 14:39] LABS: URINE APPEARANCE CLOUDY; URINE BILIRUBIN NEGATIVE (NEGATIVE); URINE BLOOD NEGATIVE (NEGATIVE); URINE COLOR YELLOW; URINE GLUCOSE (UA) NEGATIVE (NEGATIVE); URINE KETONE NEGATIVE (NEGATIVE); URINE LEUK ESTERASE NEGATIVE (NEGATIVE); URINE NITRITE NEGATIVE (NEGATIVE); URINE PROTEIN NEGATIVE (NEGATIVE); URINE UROBILINOGEN NEGATIVE mg/dL (0.2-1.0)
[2017-09-20] MEDS: THIAMINE HCL 100 MG TABLET (FP) PO SCH (22:27)
[2017-09-21] MEDS: chlordiazePOXIDE HCL 25 MG CAPSULE PO SCH ×2 (06:09→10:57)
[2017-09-21] MEDS: NICOTINE 21 MG/24 HOURS TOPICAL PATCH TD SCH (10:56)
[2017-09-21] MEDS: PRENATAL VITAMINS W/ FOLIC ACID TABLET (FP) PO SCH (10:56)
--- NOTE | 2017-09-21 11:31 | PN ---
S CIWA - CIWA Score Nausea/Vomitin Muscle Tremors: 3 Anxiety: 3 Agitation: 3 Paroxysmal Sweats: 1-Minimal Palms Moist Orientation: 0-Oriented Tacttile Disturbances: 1-Very Mild Itch/Numbness Auditory Disturbances: 1-Very Mild Visual Disturbances: 0-None Headache: 2-Mild CIWA-Ar Total Score: 17 BHS Progress Note (SOAP) Subjective: alert,irritable,anxious,interrupted sleep,tremor Objective: 09/21/17 11:29 Vital Signs Temperature 98.8 F 09/21/17 10:24 Pulse Rate 57 L 09/21/17 10:24 Respiratory Rate 20 09/21/17 10:24 Blood Pressure 143/70 09/21/17 10:24 O2 Sat by Pulse Oximetry (%) Laboratory Last Values WBC 10.3 K/mm3 (4.0-10.0) H 09/20/17 05:45 RBC 5.06 M/mm3 (4.00-5.60) 09/20/17 05:45 Hgb 16.1 GM/dL (11.7-16.9) 09/20/17 05:45 Hct 47.5 % (35.4-49) 09/20/17 05:45 MCV 93.9 fl (80-96) 09/20/17 05:45 MCH 31.8 pg (25.7-33.7) 09/20/17 05:45 MCHC 33.8 g/dl (32.0-35.9) 09/20/17 05:45 RDW 14.4 % (11.9-15.9) 09/20/17 05:45 Plt Count 228 K/MM3 (134-434) D 09/20/17 05:45 MPV 8.8 fl (7.5-11.1) 09/20/17 05:45 Sodium 135 mmol/L (136-145) L 09/20/17 05:45 Potassium 3.9 mmol/L (3.5-5.1) 09/20/17 05:45 Chloride 99 mmol/L (98-107) 09/20/17 05:45 Carbon Dioxide 31 mmol/L (21-32) 09/20/17 05:45 Anion Gap 5 (8-16) L 09/20/17 05:45 BUN 9 mg/dL (7-18) D 09/20/17 05:45 Creatinine 0.9 mg/dL (0.7-1.3) 09/20/17 05:45 Creat Clearance w eGFR > 60 (>60) 09/20/17 05:45 Random Glucose 90 mg/dL (74-106) 09/20/17 05:45 Calcium 9.0 mg/dL (8.5-10.1) 09/20/17 05:45 Total Bilirubin 0.6 mg/dL (0.2-1.0) D 09/20/17 05:45 AST 34 U/L (15-37) 09/20/17 05:45 ALT 40 U/L (12-78) 09/20/17 05:45 Alkaline Phosphatase 112 U/L (45-117) 09/20/17 05:45 Total Protein 8.6 g/dl (6.4-8.2) H 09/20/17 05:45 Albumin 4.1 g/dl (3.4-5.0) D 09/20/17 05:45 Urine Color Yellow 09/20/17 10:30 Urine Appearance Cloudy 09/20/17 10:30 Urine pH 7.0 (5.0-8.0) 09/20/17 10:30 Ur Specific [place] 1.016 (1.001-1.035) 09/20/17 10:30 Urine Protein Negative (NEGATIVE) 09/20/17 10:30 Urine Glucose (UA) Negative (NEGATIVE) 09/20/17 10:30 Urine Ketones Negative (NEGATIVE) 09/20/17 10:30 Urine Blood Negative (NEGATIVE) 09/20/17 10:30 Urine Nitrite Negative (NEGATIVE) 09/20/17 10:30 Urine Bilirubin Negative (NEGATIVE) 09/20/17 10:30 Urine Urobilinogen Negative mg/dL (0.2-1.0) 09/20/17 10:30 Ur Leukocyte Esterase Negative (NEGATIVE) 09/20/17 10:30 Urine WBC (Auto) <1 /hpf (3-5) 09/19/17 13:00 Urine RBC (Auto) 2 /hpf (0-3) 09/19/17 13:00 Urine Bacteria Rare /hpf (NONE SEEN) 09/19/17 13:00 RPR Titer Nonreactive (NONREACTIVE) 09/20/17 05:45 Assessment: 09/21/17 11:30 withdrawal symptom Plan: continue detox
[2017-09-21] MEDS: chlordiazePOXIDE 5 MG CAPSULE PO SCH ×2 (17:43→22:12)
[2017-09-21] MEDS: THIAMINE HCL 100 MG TABLET (FP) PO SCH (22:12)
[2017-09-22] MEDS: chlordiazePOXIDE 5 MG CAPSULE PO SCH ×2 (05:49→10:24)
[2017-09-22] MEDS: PRENATAL VITAMINS W/ FOLIC ACID TABLET (FP) PO SCH (10:24)
[2017-09-22] MEDS: NICOTINE 21 MG/24 HOURS TOPICAL PATCH TD SCH (10:25)
--- NOTE | 2017-09-22 10:50 | PN ---
S Progress Note (SOAP) Subjective: ALERT,IRRITABLE,ANXIOUS,INTERRUPTED SLEEP Objective: 09/22/17 10:47 Vital Signs Temperature 97.5 F L 09/22/17 06:00 Pulse Rate 52 L 09/22/17 06:00 Respiratory Rate 18 09/22/17 06:00 Blood Pressure 133/74 09/22/17 06:00 O2 Sat by Pulse Oximetry (%) Assessment: 09/22/17 10:49 WITHDRAWAL SYMPTOM Plan: CONTINUE DETOX,DISCHARGE IN AM
[2017-09-22] MEDS: chlordiazePOXIDE HCL 10 MG CAPSULE PO SCH ×2 (16:49→22:12)
[2017-09-22] MEDS: THIAMINE HCL 100 MG TABLET (FP) PO SCH (22:12)
[2017-09-23] MEDS: chlordiazePOXIDE HCL 10 MG CAPSULE PO SCH (05:39)
--- NOTE | 2017-09-23 09:24 | DS ---
[facility] Detox Discharge Summary Admission Date: 09/19/17 Discharge Date: 09/23/17 - History Present History: Alcohol Dependence, Cannabis Dependence Additional Comments: follow up with after care program as arrangement Pertinent Past History: hypertension hepatitis c weight loss - Physical Exam Results Vital Signs: Vital Signs Temperature 97.5 F L 09/23/17 06:00 Pulse Rate 50 L 09/23/17 06:00 Respiratory Rate 18 09/23/17 06:00 Blood Pressure 140/81 09/23/17 06:00 O2 Sat by Pulse Oximetry (%) Pertinent Admission Physical Exam Findings: withdrawal symptom and finding - Treatment Hospital Course: Detox Protocol Followed, Detoxed Safely, Responded well, Discharged Condition Good Patient has Accepted a Rehab Referral to: declined - Medication Discharge Medications: Ambulatory Orders NK [No Known Home Medication] 09/19/17 - Diagnosis (1) Alcohol dependence with uncomplicated withdrawal Current Visit: No Status: Acute (2) Hepatitis-C Current Visit: No Status: Chronic Qualifiers: Viral hepatitis chronicity: chronic Hepatic coma status: without hepatic coma Qualified Code(s): B18.2 - Chronic viral hepatitis C (3) Nicotine dependence Current Visit: No Status: Chronic Qualifiers: Nicotine product type: cigarettes Substance use status: uncomplicated Qualified Code(s): F17.210 - Nicotine dependence, cigarettes, uncomplicated (4) Hypertension Current Visit: Yes Status: Acute (5) Weight loss Current Visit: Yes Status: Acute (6) Cannabis dependence Current Visit: Yes Status: Acute - AMA Did Patient Leave Against Medical Advice: No
[2017-09-23 11:07] VITALS: BP 149/81; PULSE 60; TEMP 96.8
== END 2017-09-23 10:20 | disposition home or self-care (01) | DRG 897 ==
LOC: YASAS 11:28 → Y6N 13:45
PROVIDERS: ADMIT Internal Medicine; ATTEND Internal Medicine
PROC: HZ2ZZZZ Detoxification Services for Substance Abuse Treatment (ICD-10-PCS; principal; 2017-09-19)
DX: F10.230 Alcohol dependence with withdrawal, uncomplicated (principal); F12.20 Cannabis dependence, uncomplicated; F17.210 Nicotine dependence, cigarettes, uncomplicated; I10 Essential (primary) hypertension; B18.2 Chronic viral hepatitis C; R00.1 Bradycardia, unspecified; Z87.898 Personal history of other specified conditions
CPT/HCPCS: 36415; 80053; 81003; 81015; 85027; 86593; 93005; 93010

== ENCOUNTER 2018-02-20 14:28 | Inpatient (IN) | payer OTHER ==
[2018-02-20 15:34] VITALS: BMI 24.0
--- NOTE | 2018-02-20 17:39 | HP ---
"CIWA Score - CIWA Score Nausea/Vomitin-Mild Nausea/No Vomiting Muscle Tremors: 4-Moderate,w/Arms Extend Anxiety: 1-Mildly Anxious Agitation: 1-Slight > Activity Paroxysmal Sweats: 4-Forehead w/Sweat Beads Orientation: 0-Oriented Tacttile Disturbances: 0-None Auditory Disturbances: 0-None Visual Disturbances: 0-None Headache: 1-Very Mild CIWA-Ar Total Score: 12 Admission ROS BHS - HPI Chief Complaint: Here for alcohol withdrawal. Allergies/Adverse Reactions: Allergies Allergy/AdvReac Type Severity Reaction Status Date / Time No Known Allergies Allergy Verified 02/20/18 16:44 History of Present Illness: Here for alcohol withdrawal. [facility] has been drinking alcohol since age 26. States current usage is 12 -12oz beers daily. Denies hx seizures or blackouts. Smoke marijuana daily since about age 26. [facility] has been able to maintain sobriety up to 6 months. Smokes cigarettes 1PPD. Hx. HTN and on meds. [facility] didn't take HTN meds today(Lisinopril/HCTZ combo). States hx. hepatitis C w/ elevated enzymes - resolved. Denies other significant PMH/PSH. Has (+) benzo in urine toxicology. Denies anxiolytic use and recent treatment for alcohol use disorder. EDUCATIONAL RESOURCE COORDINATOR: Search Terms: Barrington Murdock, 1950 Search Date: 02/20/2018 05:33:12 PM The Drug Utilization Report below displays all of the controlled substance prescriptions, if any, that your patient has filled in the last twelve months. The information displayed on this report is compiled from pharmacy submissions to the Department, and accurately reflects the information as submitted by the pharmacies. This report was requested by: Mikki Cardenas | Reference #: [id number] There are no results for the search terms that you entered. Exam Limitations: No Limitations - Ebola screening Have you traveled outside of the country in the last 21 days: No (N) Have you had contact with anyone from an Ebola affected area: No Have you been sick,other than usual withdrawal symptoms: No Do you have a fever: No - Review of Systems Constitutional: No Symptoms Reported EENT: reports: Dental Problems (Upper and lower dentures. Denies difficulty chewing or swallowing) Respiratory: reports: No Symptoms reported Cardiac: reports: Other (Hx. hypertension) GI: reports: No Symptoms Reported : reports: No Symptoms Reported Musculoskeletal: reports: No Symptoms Reported Integumentary: reports: No Symptoms Reported Neuro: reports: No Symptoms reported Endocrine: reports: No Symptoms Reported Hematology: reports: No Symptoms Reported Psychiatric: reports: Orientated x3, Agitated (mild r/t withdrawal), Anxious ( mild r/t withdrawal) Patient History - Patient Medical History Hx Anemia: No Hx Asthma: No Hx Chronic Obstructive Pulmonary Disease (COPD): No Hx Cancer: No Hx Cardiac Disorders: No Hx Congestive Heart Failure: No Hx Hypertension: Yes (currently on Lisinopril) Hx Hypercholesterolemia: No Hx Pacemaker: No HX Cerebrovascular Accident: No Hx Seizures: No Hx Dementia: No Hx Diabetes: No Hx Gastrointestinal Disorders: No Hx Liver Disease: Yes (elevated LFTs) Hx Genitourinary Disorders: No Hx Sexually Transmitted Disorders: No Hx Renal Disease (ESRD): No Hx Thyroid Disease: No Hx Human Immunodeficiency Virus (HIV): No (NEGATIVE HX 2016) Hx Hepatitis C: Yes (TREATED) Hx Depression: No Hx Suicide Attempt: No Hx Bipolar Disorder: No Hx Schizophrenia: No - Patient Surgical History Past Surgical History: No Hx Neurologic Surgery: No Hx Cataract Extraction: No Hx Cardiac Surgery: No Hx Lung Surgery: No Hx Breast Surgery: No Hx Breast Biopsy: No Hx Abdominal Surgery: No Hx Appendectomy: No Hx Cholecystectomy: No Hx Genitourinary Surgery: No Hx Section: No Hx Orthopedic Surgery: No Anesthesia Reaction: No - PPD History Previous Implant?: Yes Documented Results: Negative w/proof Implanted On Prior [facility] Admission?: Yes Date: 11/03/16 Results: 0 mm PPD to be Administered?: Yes - Smoking Cessation Smoking history: Current every day smoker Have you smoked in the past 12 months: Yes Aproximately how many cigarettes per day: 20 Hx Chewing Tobacco Use: No Initiated information on smoking cessation: Yes 'Breaking Loose' booklet given: 02/20/18 - Substance & Tx. History Hx Alcohol Use: Yes Hx Substance Use: Yes Substance Use Type: Alcohol, Marijuana Hx Substance Use Treatment: Yes (Prior [facility] detox, ) - Substances Abused Alcohol Route: Oral Frequency: Daily Amount used: BEER- 2 SIX PACK Age of first use: 26 Date of Last Use: 02/20/18 (7 am) Marijuana/Hashish Route: Smoking Frequency: Daily Amount used: $5 Age of first use: 26 Date of Last Use: 02/19/18 Family Disease History - Family Disease History Family Disease History: Heart Disease: Father ([place]), Other: Mother (, old age) Admission Physical Exam [facility] - Vital Signs Vital Signs: Vital Signs - 24 hr 02/20/18 15:32 Temperature 98.8 F Pulse Rate 63 Respiratory 19 Rate Blood Pressure 156/76 - Physical General Appearance: Yes: Tremorous, Sweating, Anxious HEENTM: Yes: EOMI, Hearing grossly Normal, Normal Voice, RODY Respiratory: Yes: Chest Non-Tender, Lungs Clear, Normal Breath Sounds Neck: Yes: No masses,lesions,Nodules, Supple Breast: Yes: Breast Exam Deferred Cardiology: Yes: Regular Rhythm, Regular Rate, S1, S2 Abdominal: Yes: Normal Bowel Sounds, Non Tender, Soft Genitourinary: Yes: Within Normal Limits Back: Yes: Normal Inspection Musculoskeletal: Yes: full range of Motion, Gait Steady Extremities: Yes: Normal Capillary Refill, Tremors (Mild tremors of hands and arms when extended) Neurological: Yes: field captain II-XII NML intact, Fully Oriented, Motor Strength 5/5, Normal Response Integumentary: Yes: Normal Color, Dry, Warm Lymphatic: Yes: Within Normal Limits - Diagnostic (1) Alcohol dependence with uncomplicated withdrawal Current Visit: Yes Status: Acute (2) Cannabis dependence Current Visit: Yes Status: Chronic (3) Hypertension Current Visit: Yes Status: Acute Qualifiers: Hypertension type: essential hypertension Qualified Code(s): I10 - Essential (primary) hypertension (4) Nicotine dependence Current Visit: Yes Status: Chronic Qualifiers: Nicotine product type: cigarettes Substance use status: in withdrawal Qualified Code(s): F17.213 - Nicotine dependence, cigarettes, with withdrawal (5) History of hepatitis C Current Visit: No Status: Chronic Cleared for Admission [facility] - Detox or Rehab [facility] Level of Care: Medically Managed Detox Regimen/Protocol: Librium S Breath Alcohol Content Breath Alcohol Content: 0 Urine Drug Screen - Results Drug Screen Negative: No Urine Drug Screen Results: THC-Marijuana, BZO-Benzodiazepines"
[2018-02-20] MEDS ORDERED: hydrOXYzine PAMOATE 50 MG CAPSULE (FP) PO PRN (17:58)
[2018-02-20] MEDS ORDERED: MAGNESIUM CITRATE 300 ML BOTTLE PO PRN (17:58)
[2018-02-20] MEDS ORDERED: MAG HYDROX/AL HYDROX/SIMETH 30 ML UNIT-DOSE CUP PO PRN (17:58)
[2018-02-20] MEDS ORDERED: P-EPHED 60MG/TRIPROLIDI 2.5MG TABLET PO PRN (17:58)
[2018-02-20] MEDS ORDERED: MAGNESIUM HYDROX 2400MG/30ML ORAL SUSPENSION 30 ML CUP PO PRN (17:58)
[2018-02-20] MEDS ORDERED: guaiFENesin/D-METHORPHAN HB 10 ML UNIT-DOSE CUPS PO PRN (17:58)
[2018-02-20] MEDS ORDERED: IBUPROFEN 400 MG TABLET (FP) PO PRN (17:58)
[2018-02-20] MEDS ORDERED: chlordiazePOXIDE HCL 25 MG CAPSULE PO PRN (17:58)
[2018-02-20] MEDS ORDERED: MENTHOL/PHENOL 1 EACH UD MM PRN (17:58)
[2018-02-20] MEDS ORDERED: ACETAMINOPHEN 325 MG TABLET (FP) PO PRN (17:58)
[2018-02-20] MEDS ORDERED: LOPERAMIDE HCL 2 MG CAPSULE PO PRN (17:58)
[2018-02-20] MEDS ORDERED: MELATONIN 5 MG TABLETS PO PRN (22:00)
[2018-02-20] MEDS: chlordiazePOXIDE HCL 25 MG CAPSULE PO SCH (22:41)
[2018-02-20] MEDS: THIAMINE HCL 100 MG TABLET (FP) PO SCH (22:41)
[2018-02-20] MEDS: NICOTINE 21 MG/24 HOURS TOPICAL PATCH TD SCH (22:46)
[2018-02-21] MEDS: chlordiazePOXIDE HCL 25 MG CAPSULE PO SCH ×4 (05:55→22:37)
--- NOTE | 2018-02-21 09:46 | PN ---
S CIWA - CIWA Score Nausea/Vomitin Muscle Tremors: 3 Anxiety: 3 Agitation: 2 Paroxysmal Sweats: 1-Minimal Palms Moist Orientation: 0-Oriented Tacttile Disturbances: 1-Very Mild Itch/Numbness Auditory Disturbances: 1-Very Mild Visual Disturbances: 0-None Headache: 2-Mild CIWA-Ar Total Score: 16 BHS Progress Note (SOAP) Subjective: alert,irritable,anxious,interrupted sleep, Objective: 02/21/18 09:47 Vital Signs Temperature 97.5 F L 02/21/18 09:05 Pulse Rate 52 L 02/21/18 09:05 Respiratory Rate 19 02/21/18 09:05 Blood Pressure 150/82 02/21/18 09:05 O2 Sat by Pulse Oximetry (%) ekg sinus bradycardia 59/min qt/qtc 456/451 lab pending Assessment: 02/21/18 09:49 withdrawal symptom Plan: continue detox
[2018-02-21 09:53] LABS: HEMATOCRIT 42.6 % (35.4-49); HEMOGLOBIN 14.7 GM/dL (11.7-16.9); MCH 32.2 pg (25.7-33.7); MCHC 34.4 g/dl (32.0-35.9); MEAN CELL VOLUME 93.6 fl (80-96); MEAN PLT VOLUME 8.7 fl (7.5-11.1); PLATELET COUNT 159 K/MM3 (134-434); RBC 4.55 M/mm3 (4.00-5.60); RDW 13.7 % (11.9-15.9)
[2018-02-21] MEDS: HYDROCHLOROTHIAZIDE 12.5 MG CAPSULE (FP) PO SCH (10:06)
[2018-02-21] MEDS: LISINOPRIL 10 MG TABLET (FP) PO SCH (10:06)
[2018-02-21] MEDS: PRENATAL VITAMINS W/ FOLIC ACID TABLET (FP) PO SCH (10:06)
[2018-02-21] MEDS: NICOTINE 21 MG/24 HOURS TOPICAL PATCH TD SCH (10:07)
[2018-02-21 10:51] LABS: ALBUMIN 3.2 g/dl (3.4-5.0); ANION GAP 6 (8-16); BLOOD UREA NITROGEN 12 mg/dL (7-18); CALCIUM 8.5 mg/dL (8.5-10.1); CHLORIDE 104 mmol/L (98-107); CO2 31 mmol/L (21-32); GLUCOSE,RANDOM 93 mg/dL (74-106); POTASSIUM 4.2 mmol/L (3.5-5.1); SODIUM 141 mmol/L (136-145)
[2018-02-21 10:55] LABS: ALK PHOS 74 U/L (45-117); BILIRUBIN,TOTAL 0.6 mg/dL (0.2-1.0); CREATININE 0.8 mg/dL (0.7-1.3); SGOT/AST 21 U/L (15-37); SGPT/ALT 27 U/L (12-78); TOT PROT 6.9 g/dl (6.4-8.2)
--- NOTE | 2018-02-21 11:29 | EKG ---
Test Reason : Blood Pressure : / mmHG Vent. Rate : 059 BPM Atrial Rate : 059 BPM P-R Int : 154 ms QRS Dur : 104 ms QT Int : 456 ms P-R-T Axes : 086 078 079 degrees QTc Int : 451 ms SINUS BRADYCARDIA INCOMPLETE RIGHT BUNDLE BRANCH BLOCK BORDERLINE ECG Confirmed by MD ISAAC, GHASSAN ([id number]) on 02/21/2018 11:29:28 AM Referred By: Confirmed By:GHASSAN GRAY MD
--- NOTE | 2018-02-21 14:47 | CONSULT ---
[facility] Psychiatric Consult - Data Date of interview: 02/21/18 Admission source: [facility] Identifying data: Patient is a 67 year old male, , without kids, unemployed , domiciled, and supported by [facility]. This is one of multiple admissions for patient. Pt. admitted for alcohol dependence. Substance Abuse History: Smoking Cessation. Smoking history: Current every day smoker. Have you smoked in the past 12 months: Yes. Aproximately how many cigarettes per day: 20. Hx Chewing Tobacco Use: No. Initiated information on smoking cessation: Yes. 'Breaking Loose' booklet given: 02/20/18. - Substance & Tx. History. Hx Alcohol Use: Yes. Hx Substance Use: Yes. Substance Use Type : Alcohol, Marijuana. Hx Substance Use Treatment: Yes (Prior [facility] detox, ). - Substances Abused. Alcohol. Route: Oral. Frequency: Daily. Amount used: BEER- 2 SIX PACK. Age of first use: 26. Date of Last Use: 02/20/18 (7 am). * * Marijuana/Hashish. Route: Smoking. Frequency: Daily. Amount used: $5. Age of first use: 26. Date of Last Use: 02/19/18 Medical History: hypertension, Hep C ( treated) Psychiatric History: Patient denies h/o psychiatric hospitalization, outpatient care, and suicide attempt. Physical/Sexual Abuse/Trauma History: Denies. Mental Status Exam - Mental Status Exam Alert and Oriented to: Time, Place, Person Cognitive Function: Good Patient Appearance: Well Groomed Mood: Hopeful, Euthymic Affect: Appropriate, Mood Congruent Patient Behavior: Appropriate, Cooperative Speech Pattern: Clear, Appropriate Voice Loudness: Normal Thought Process: Intact, Goal Oriented Thought Disorder: Not Present Hallucinations: Denies Suicidal Ideation: Denies Homicidal Ideation: Denies Insight/Judgement: Poor Sleep: Fair Appetite: Good Muscle strength/Tone: Normal Gait/Station: Normal Psychiatric Findings - Problem List ([place] 1, 2,3) (1) Alcohol dependence with uncomplicated withdrawal Current Visit: Yes Status: Acute (2) Hypertension Current Visit: Yes Status: Acute Qualifiers: Hypertension type: essential hypertension Qualified Code(s): I10 - Essential (primary) hypertension (3) Cannabis dependence Current Visit: Yes Status: Chronic (4) Nicotine dependence Current Visit: Yes Status: Chronic Qualifiers: Nicotine product type: cigarettes Substance use status: in withdrawal Qualified Code(s): F17.213 - Nicotine dependence, cigarettes, with withdrawal (5) History of hepatitis C Current Visit: No Status: Chronic - Initial Treatment Plan Initial Treatment Plan: Psychoeducation provided. Detoxification in progress. Observation.
[2018-02-21] MEDS: THIAMINE HCL 100 MG TABLET (FP) PO SCH (22:37)
[2018-02-22] MEDS: chlordiazePOXIDE HCL 25 MG CAPSULE PO SCH ×3 (05:44→18:20)
[2018-02-22] MEDS: HYDROCHLOROTHIAZIDE 12.5 MG CAPSULE (FP) PO SCH (10:28)
[2018-02-22] MEDS: PRENATAL VITAMINS W/ FOLIC ACID TABLET (FP) PO SCH (10:28)
[2018-02-22] MEDS: LISINOPRIL 10 MG TABLET (FP) PO SCH (10:28)
[2018-02-22] MEDS: NICOTINE 21 MG/24 HOURS TOPICAL PATCH TD SCH (10:28)
--- NOTE | 2018-02-22 11:17 | PN ---
S CIWA - CIWA Score Nausea/Vomitin Muscle Tremors: 3 Anxiety: 2 Agitation: 2 Paroxysmal Sweats: 1-Minimal Palms Moist Orientation: 0-Oriented Tacttile Disturbances: 1-Very Mild Itch/Numbness Auditory Disturbances: 1-Very Mild Visual Disturbances: 0-None Headache: 2-Mild CIWA-Ar Total Score: 15 S Progress Note (SOAP) Subjective: alert,irritable.anxious,interrupted sleep,tremor Objective: 02/22/18 11:15 Vital Signs Temperature 98.9 F 02/22/18 09:05 Pulse Rate 59 L 02/22/18 09:05 Respiratory Rate 18 02/22/18 09:05 Blood Pressure 147/87 02/22/18 09:05 O2 Sat by Pulse Oximetry (%) Laboratory Last Values WBC 7.0 K/mm3 (4.0-10.0) 02/21/18 07:00 RBC 4.55 M/mm3 (4.00-5.60) 02/21/18 07:00 Hgb 14.7 GM/dL (11.7-16.9) 02/21/18 07:00 Hct 42.6 % (35.4-49) 02/21/18 07:00 MCV 93.6 fl (80-96) 02/21/18 07:00 MCH 32.2 pg (25.7-33.7) 02/21/18 07:00 MCHC 34.4 g/dl (32.0-35.9) 02/21/18 07:00 RDW 13.7 % (11.9-15.9) 02/21/18 07:00 Plt Count 159 K/MM3 (134-434) D 02/21/18 07:00 MPV 8.7 fl (7.5-11.1) 02/21/18 07:00 Sodium 141 mmol/L (136-145) 02/21/18 07:00 Potassium 4.2 mmol/L (3.5-5.1) 02/21/18 07:00 Chloride 104 mmol/L (98-107) 02/21/18 07:00 Carbon Dioxide 31 mmol/L (21-32) 02/21/18 07:00 Anion Gap 6 (8-16) L 02/21/18 07:00 BUN 12 mg/dL (7-18) 02/21/18 07:00 Creatinine 0.8 mg/dL (0.7-1.3) 02/21/18 07:00 Creat Clearance w eGFR > 60 (>60) 02/21/18 07:00 Random Glucose 93 mg/dL (74-106) 02/21/18 07:00 Calcium 8.5 mg/dL (8.5-10.1) 02/21/18 07:00 Total Bilirubin 0.6 mg/dL (0.2-1.0) 02/21/18 07:00 AST 21 U/L (15-37) D 02/21/18 07:00 ALT 27 U/L (12-78) D 02/21/18 07:00 Alkaline Phosphatase 74 U/L (45-117) 02/21/18 07:00 Total Protein 6.9 g/dl (6.4-8.2) 02/21/18 07:00 Albumin 3.2 g/dl (3.4-5.0) L 02/21/18 07:00 RPR Titer Nonreactive (NONREACTIVE) 02/21/18 07:00 Assessment: 02/22/18 11:16 withdrawal symptom Plan: continue detox
[2018-02-22] MEDS: THIAMINE HCL 100 MG TABLET (FP) PO SCH (22:06)
[2018-02-22] MEDS: chlordiazePOXIDE 5 MG CAPSULE PO SCH (22:07)
[2018-02-23] MEDS: chlordiazePOXIDE 5 MG CAPSULE PO SCH ×3 (06:41→17:42)
--- NOTE | 2018-02-23 09:32 | PN ---
S Progress Note (SOAP) Subjective: alert,irritable,anxious,interrupted sleep Objective: 02/23/18 09:31 Vital Signs Temperature 97.7 F 02/23/18 07:18 Pulse Rate 50 L 02/23/18 07:18 Respiratory Rate 20 02/23/18 07:18 Blood Pressure 149/73 02/23/18 07:18 O2 Sat by Pulse Oximetry (%) Assessment: 02/23/18 09:31 withdrawal symptom Plan: continue detox,discharge in am
[2018-02-23] MEDS: PRENATAL VITAMINS W/ FOLIC ACID TABLET (FP) PO SCH (10:07)
[2018-02-23] MEDS: HYDROCHLOROTHIAZIDE 12.5 MG CAPSULE (FP) PO SCH (10:07)
[2018-02-23] MEDS: LISINOPRIL 10 MG TABLET (FP) PO SCH (10:07)
[2018-02-23] MEDS: NICOTINE 21 MG/24 HOURS TOPICAL PATCH TD SCH (10:08)
[2018-02-23] MEDS: THIAMINE HCL 100 MG TABLET (FP) PO SCH (22:29)
[2018-02-23] MEDS: chlordiazePOXIDE HCL 10 MG CAPSULE PO SCH (22:29)
[2018-02-24] MEDS: chlordiazePOXIDE HCL 10 MG CAPSULE PO SCH (05:40)
--- NOTE | 2018-02-24 08:12 | PN ---
S Progress Note (SOAP) Subjective: alert,no complaint Objective: 02/24/18 08:10 Vital Signs Temperature 97.1 F L 02/24/18 06:00 Pulse Rate 53 L 02/24/18 06:00 Respiratory Rate 18 02/24/18 06:00 Blood Pressure 134/70 02/24/18 06:00 O2 Sat by Pulse Oximetry (%) Assessment: 02/24/18 08:11 detox completed,no withdrawal symptom Plan: discharge today,follow up with after care program as arrangement
--- NOTE | 2018-02-24 08:17 | DS ---
[facility] Detox Discharge Summary Admission Date: 02/20/18 Discharge Date: 02/24/18 - History Present History: Alcohol Dependence Additional Comments: follow up with after care program as arrangement Pertinent Past History: asthma hypertension nicotine dependence syncope gastritis anxiety and depression - Physical Exam Results Vital Signs: Vital Signs Temperature 97.1 F L 02/24/18 06:00 Pulse Rate 53 L 02/24/18 06:00 Respiratory Rate 18 02/24/18 06:00 Blood Pressure 134/70 02/24/18 06:00 O2 Sat by Pulse Oximetry (%) Pertinent Admission Physical Exam Findings: withdrawal signs and symptom Vital Signs Temperature 97.1 F L 02/24/18 06:00 Pulse Rate 53 L 02/24/18 06:00 Respiratory Rate 18 02/24/18 06:00 Blood Pressure 134/70 02/24/18 06:00 O2 Sat by Pulse Oximetry (%) Laboratory Last Values WBC 7.0 K/mm3 (4.0-10.0) 02/21/18 07:00 RBC 4.55 M/mm3 (4.00-5.60) 02/21/18 07:00 Hgb 14.7 GM/dL (11.7-16.9) 02/21/18 07:00 Hct 42.6 % (35.4-49) 02/21/18 07:00 MCV 93.6 fl (80-96) 02/21/18 07:00 MCH 32.2 pg (25.7-33.7) 02/21/18 07:00 MCHC 34.4 g/dl (32.0-35.9) 02/21/18 07:00 RDW 13.7 % (11.9-15.9) 02/21/18 07:00 Plt Count 159 K/MM3 (134-434) D 02/21/18 07:00 MPV 8.7 fl (7.5-11.1) 02/21/18 07:00 Sodium 141 mmol/L (136-145) 02/21/18 07:00 Potassium 4.2 mmol/L (3.5-5.1) 02/21/18 07:00 Chloride 104 mmol/L (98-107) 02/21/18 07:00 Carbon Dioxide 31 mmol/L (21-32) 02/21/18 07:00 Anion Gap 6 (8-16) L 02/21/18 07:00 BUN 12 mg/dL (7-18) 02/21/18 07:00 Creatinine 0.8 mg/dL (0.7-1.3) 02/21/18 07:00 Creat Clearance w eGFR > 60 (>60) 02/21/18 07:00 Random Glucose 93 mg/dL (74-106) 02/21/18 07:00 Calcium 8.5 mg/dL (8.5-10.1) 02/21/18 07:00 Total Bilirubin 0.6 mg/dL (0.2-1.0) 02/21/18 07:00 AST 21 U/L (15-37) D 02/21/18 07:00 ALT 27 U/L (12-78) D 02/21/18 07:00 Alkaline Phosphatase 74 U/L (45-117) 02/21/18 07:00 Total Protein 6.9 g/dl (6.4-8.2) 02/21/18 07:00 Albumin 3.2 g/dl (3.4-5.0) L 02/21/18 07:00 RPR Titer Nonreactive (NONREACTIVE) 02/21/18 07:00 - Treatment Hospital Course: Detox Protocol Followed, Detoxed Safely, Responded well, Discharged Condition Good Patient has Accepted a Rehab Referral to: declined - Medication Discharge Medications: Ambulatory Orders Lisinopril/Hydrochlorothiazide [Lisinopril-Hctz 10-12.5 mg Tab] 1 each PO DAILY 02/20/18 - Diagnosis (1) Alcohol dependence with uncomplicated withdrawal Current Visit: Yes Status: Acute (2) Hypertension Current Visit: Yes Status: Acute Qualifiers: Hypertension type: essential hypertension Qualified Code(s): I10 - Essential (primary) hypertension (3) Cannabis dependence Current Visit: Yes Status: Chronic (4) Nicotine dependence Current Visit: Yes Status: Chronic Qualifiers: Nicotine product type: cigarettes Substance use status: in withdrawal Qualified Code(s): F17.213 - Nicotine dependence, cigarettes, with withdrawal (5) Weight loss Current Visit: No Status: Acute (6) Hepatitis-C Current Visit: No Status: Chronic Qualifiers: Viral hepatitis chronicity: chronic Hepatic coma status: without hepatic coma Qualified Code(s): B18.2 - Chronic viral hepatitis C - AMA Did Patient Leave Against Medical Advice: No
[2018-02-24 09:09] VITALS: BP 144/77; PULSE 56; TEMP 99.3
== END 2018-02-24 09:35 | disposition home or self-care (01) | DRG 897 ==
LOC: YASAS 14:28 → Y6N 19:28
PROVIDERS: ADMIT Surgery; ATTEND Surgery
PROC: HZ2ZZZZ Detoxification Services for Substance Abuse Treatment (ICD-10-PCS; principal; 2018-02-20)
DX: F10.230 Alcohol dependence with withdrawal, uncomplicated (principal); F12.20 Cannabis dependence, uncomplicated; F17.213 Nicotine dependence, cigarettes, with withdrawal; F41.8 Other specified anxiety disorders; I10 Essential (primary) hypertension; B18.2 Chronic viral hepatitis C; R79.89 Other specified abnormal findings of blood chemistry; R63.4 Abnormal weight loss; Z68.24 Body mass index [BMI] 24.0-24.9, adult
CPT/HCPCS: 36415; 80053; 85027; 86593; 93005; 93010

== ENCOUNTER 2018-06-05 14:34 | Inpatient (IN) | payer OTHER ==
[2018-06-05 16:27] VITALS: BMI 23.7
--- NOTE | 2018-06-05 19:20 | HP ---
CIWA Score - CIWA Score Nausea/Vomitin-No Nausea/No Vomiting Muscle Tremors: 3 Anxiety: 1-Mildly Anxious Agitation: 0-Normal Activity Paroxysmal Sweats: 3 (Increased facial moisture w/o beads) Orientation: 2-Disoriented Date<2 days Tacttile Disturbances: 0-None Auditory Disturbances: 0-None Visual Disturbances: 0-None Headache: 0-None Present CIWA-Ar Total Score: 9 Admission ROS BHS - HPI Chief Complaint: Alcohol withdrawal. Allergies/Adverse Reactions: Allergies Allergy/AdvReac Type Severity Reaction Status Date / Time No Known Allergies Allergy Verified 06/05/18 18:08 History of Present Illness: Alcohol use began in late 20's. Marijuana use began in late 20's. States I had to drink some because otherwise I would not stay if I'm having bad withdrawal symptoms. Denies hx seizures or blackouts. Longest length of sobriety about 2 days. Hx: HTN, Denies other significant PMH. Denies mental health problems. 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 Exam Limitations: No Limitations - Ebola screening Have you traveled outside of the country in the last 21 days: No Have you had contact with anyone from an Ebola affected area: No Have you been sick,other than usual withdrawal symptoms: No - Review of Systems Constitutional: No Symptoms Reported EENT: reports: No Symptoms Reported Respiratory: reports: No Symptoms reported Cardiac: reports: No Symptoms Reported, Other (Hx HTN - on meds) GI: reports: Poor Appetite : reports: No Symptoms Reported Musculoskeletal: reports: No Symptoms Reported Integumentary: reports: No Symptoms Reported Neuro: reports: Tremors Endocrine: reports: No Symptoms Reported Hematology: reports: No Symptoms Reported Psychiatric: reports: Judgement Intact Patient History - Patient Medical History Hx Anemia: No Hx Asthma: No Hx Chronic Obstructive Pulmonary Disease (COPD): No Hx Cancer: No Hx Cardiac Disorders: No Hx Congestive Heart Failure: No Hx Hypertension: Yes (currently on Lisinopril) Hx Hypercholesterolemia: No Hx Pacemaker: No HX Cerebrovascular Accident: No Hx Seizures: No Hx Dementia: No Hx Diabetes: No Hx Gastrointestinal Disorders: No Hx Liver Disease: Yes (elevated LFTs) Hx Genitourinary Disorders: No Hx Sexually Transmitted Disorders: No Hx Renal Disease (ESRD): No Hx Thyroid Disease: No Hx Human Immunodeficiency Virus (HIV): No (NEGATIVE HX 2016) Hx Hepatitis C: Yes (TREATED) Hx Depression: No Hx Suicide Attempt: No Hx Bipolar Disorder: No Hx Schizophrenia: No - Patient Surgical History Past Surgical History: No Hx Neurologic Surgery: No Hx Cataract Extraction: No Hx Cardiac Surgery: No Hx Lung Surgery: No Hx Breast Surgery: No Hx Breast Biopsy: No Hx Abdominal Surgery: No Hx Appendectomy: No Hx Cholecystectomy: No Hx Genitourinary Surgery: No Hx Section: No Hx Orthopedic Surgery: No Anesthesia Reaction: No - PPD History Previous Implant?: Yes Documented Results: Negative w/proof Date: 02/22/18 Results: 0 mm PPD to be Administered?: No - Smoking Cessation Smoking history: Current every day smoker Have you smoked in the past 12 months: Yes Aproximately how many cigarettes per day: 20 Hx Chewing Tobacco Use: No Initiated information on smoking cessation: Yes 'Breaking Loose' booklet given: 06/05/18 - Substances Abused Alcohol Route: Oral Frequency: Daily Amount used: LIQUOR- 1 PINT, BEER- 1 SIX PACK Age of first use: 26 Date of Last Use: 06/05/18 Family Disease History - Family Disease History Family Disease History: Heart Disease: Father ([place]), Other: Mother (, old age) Admission Physical Exam S - Vital Signs Vital Signs: Vital Signs - 24 hr 06/05/18 16:24 Temperature 98.1 F Pulse Rate 78 Respiratory 18 Rate Blood Pressure 140/78 - Physical General Appearance: Yes: Mild Distress, Tremorous, Sweating HEENTM: Yes: EOMI (jerking movements of eyes upon lateral gaze), Hearing grossly Normal, Normocephalic, RODY, Other (dry lips and mucous) Respiratory: Yes: Chest Non-Tender, Wheezing (MIld bilateral insp/exp wheeze. 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 intact, Alert, Motor Strength 5/5, Normal Mood /Affect, Normal Response, Other (jerking movements of eyes upon lateral gaze) - Diagnostic (1) Nystagmus Current Visit: Yes Status: Acute (2) Dehydration Current Visit: Yes Status: Acute (3) Alcohol dependence with uncomplicated withdrawal Current Visit: Yes Status: Acute (4) Hypertension Current Visit: Yes Status: Chronic Qualifiers: Hypertension type: essential hypertension Qualified Code(s): I10 - Essential (primary) hypertension (5) Cannabis dependence Current Visit: Yes Status: Chronic (6) Nicotine dependence Current Visit: Yes Status: Chronic Qualifiers: Nicotine product type: cigarettes Substance use status: in withdrawal Qualified Code(s): F17.213 - Nicotine dependence, cigarettes, with withdrawal (7) Inspiratory wheeze on examination Current Visit: Yes Status: Acute Comment: With cough productive of clear phlegm Cleared for Admission BHS - Detox or Rehab [facility] Level of Care: Medically Supervised Detox Regimen/Protocol: Librium S Breath Alcohol Content Breath Alcohol Content: 0 Urine Drug Screen - Results Drug Screen Negative: No Urine Drug Screen Results: THC-Marijuana
[2018-06-05] MEDS ORDERED: MAGNESIUM CITRATE 300 ML BOTTLE PO PRN (19:36)
[2018-06-05] MEDS ORDERED: chlordiazePOXIDE HCL 25 MG CAPSULE PO PRN (19:36)
[2018-06-05] MEDS ORDERED: MENTHOL/PHENOL 1 EACH UD MM PRN (19:36)
[2018-06-05] MEDS ORDERED: MAG HYDROX/AL HYDROX/SIMETH 30 ML UNIT-DOSE CUP PO PRN (19:36)
[2018-06-05] MEDS ORDERED: LOPERAMIDE HCL 2 MG CAPSULE PO PRN (19:36)
[2018-06-05] MEDS ORDERED: IBUPROFEN 400 MG TABLET (FP) PO PRN (19:36)
[2018-06-05] MEDS ORDERED: NICOTINE POLACRILEX 2 MG GUM BC PRN (19:36)
[2018-06-05] MEDS ORDERED: chlordiazePOXIDE HCL 25 MG CAPSULE PO ONE (19:36)
[2018-06-05] MEDS ORDERED: ACETAMINOPHEN 325 MG TABLET (FP) PO PRN (19:36)
[2018-06-05] MEDS ORDERED: MAGNESIUM HYDROX 2400MG/30ML ORAL SUSPENSION 30 ML CUP PO PRN (19:36)
[2018-06-05] MEDS ORDERED: ALBUTEROL SO4 0.083% IH SOL 2.5 MG/3 ML VIAL.NEB. NEB ONE (19:40)
[2018-06-05] MEDS: guaiFENesin 200 MG/10 ML 10 ML UNIT-DOSE CUPS PO SCH (22:49)
[2018-06-05] MEDS: THIAMINE HCL 100 MG TABLET (FP) PO SCH (22:49)
[2018-06-05] MEDS: chlordiazePOXIDE HCL 25 MG CAPSULE PO SCH (22:49)
[2018-06-05] MEDS: MELATONIN 5 MG TABLETS PO PRN (22:51)
[2018-06-05 23:15] LABS: URINE APPEARANCE CLEAR; URINE BILIRUBIN NEGATIVE (<2.0 mg/dL); URINE COLOR YELLOW; URINE GLUCOSE (UA) NEGATIVE (NEGATIVE); URINE KETONE NEGATIVE (NEGATIVE); URINE LEUK ESTERASE NEGATIVE (NEGATIVE); URINE NITRITE NEGATIVE (NEGATIVE); URINE PROTEIN NEGATIVE (NEGATIVE); URINE UROBILINOGEN NEGATIVE mg/dL (0.2-1.0)
[2018-06-05 23:23] LABS: URINE MUCUS RARE
[2018-06-06] MEDS: guaiFENesin 200 MG/10 ML 10 ML UNIT-DOSE CUPS PO SCH ×4 (01:56→22:07)
[2018-06-06] MEDS: chlordiazePOXIDE HCL 25 MG CAPSULE PO SCH ×4 (05:50→22:07)
--- NOTE | 2018-06-06 10:02 | PN ---
[facility] CIWA - CIWA Score Nausea/Vomitin-No Nausea/No Vomiting Muscle Tremors: 4-Moderate,w/Arms Extend Anxiety: 2 Agitation: 2 Paroxysmal Sweats: 2 Orientation: 0-Oriented Tacttile Disturbances: 0-None Auditory Disturbances: 0-None Visual Disturbances: 0-None Headache: 0-None Present CIWA-Ar Total Score: 10 S Progress Note (SOAP) Subjective: sweats mild shakes mild body aches Objective: 06/06/18 10:00 Vital Signs Temperature 97.3 F L 06/06/18 09:55 Pulse Rate 67 06/06/18 09:55 Respiratory Rate 16 06/06/18 09:55 Blood Pressure 163/87 06/06/18 09:55 O2 Sat by Pulse Oximetry (%) Laboratory Tests 06/05/18 22:00 Urine Color Yellow Urine Appearance Clear Urine pH 6.0 Ur Specific [place] 1.015 Urine Protein Negative Urine Glucose (UA) Negative Urine Ketones Negative Urine Blood 1+ H Urine Nitrite Negative Urine Bilirubin Negative Urine Urobilinogen Negative Ur Leukocyte Esterase Negative Urine WBC (Auto) 3 Urine RBC (Auto) 8 Urine Mucus Rare rest of labs pending aaox3 ambulating no acute distress Assessment: 06/06/18 10:01 withdrawal sx Plan: continue detox increase fluids labs pending
[2018-06-06 10:13] LABS: HEMATOCRIT 43.4 % (35.4-49); HEMOGLOBIN 14.3 GM/dL (11.7-16.9); MCH 31.4 pg (25.7-33.7); MCHC 32.9 g/dl (32.0-35.9); MEAN CELL VOLUME 95.3 fl (80-96); MEAN PLT VOLUME 8.6 fl (7.5-11.1); PLATELET COUNT 163 K/MM3 (134-434); RBC 4.55 M/mm3 (4.00-5.60); RDW 13.7 % (11.9-15.9); WHITE BLOOD COUNT 6.1 K/mm3 (4.0-10.0)
[2018-06-06 10:43] LABS: ALBUMIN 3.1 g/dl (3.4-5.0); ALK PHOS 69 U/L (45-117); ANION GAP 12 MMOL/L (8-16); BILIRUBIN,TOTAL 0.6 mg/dL (0.2-1); BLOOD UREA NITROGEN 10 mg/dL (7-18); CALCIUM 8.1 mg/dL (8.5-10.1); CHLORIDE 100 mmol/L (98-107); CO2 26 mmol/L (21-32); CREATININE 0.9 mg/dL (0.55-1.3); GLUCOSE,RANDOM 184 mg/dL (74-106); POTASSIUM 3.7 mmol/L (3.5-5.1); SGOT/AST 24 U/L (15-37); SGPT/ALT 27 U/L (13-61); SODIUM 139 mmol/L (136-145); TOT PROT 6.9 g/dl (6.4-8.2)
[2018-06-06] MEDS: PRENATAL VITAMINS W/ FOLIC ACID TABLET (FP) PO SCH (10:46)
[2018-06-06] MEDS: NICOTINE 21 MG/24 HOURS TOPICAL PATCH TD SCH (10:46)
[2018-06-06] MEDS: LISINOPRIL 10 MG TABLET (FP) PO SCH (10:47)
[2018-06-06] MEDS: HYDROCHLOROTHIAZIDE 12.5 MG CAPSULE (FP) PO SCH (10:47)
--- NOTE | 2018-06-06 16:07 | EKG ---
Test Reason : Blood Pressure : / mmHG Vent. Rate : 056 BPM Atrial Rate : 056 BPM P-R Int : 130 ms QRS Dur : 112 ms QT Int : 458 ms P-R-T Axes : 066 076 075 degrees QTc Int : 441 ms SINUS BRADYCARDIA INCOMPLETE RIGHT BUNDLE BRANCH BLOCK BORDERLINE ECG WHEN COMPARED WITH ECG OF 20-FEB-2018 22:20, NO SIGNIFICANT CHANGE WAS FOUND Confirmed by MD PAULA, MECHE ([id number]) on 06/06/2018 4:06:56 PM Referred By: Confirmed By:MECHE MITCHELL MD
[2018-06-06] MEDS: THIAMINE HCL 100 MG TABLET (FP) PO SCH (22:07)
[2018-06-07] MEDS: chlordiazePOXIDE HCL 25 MG CAPSULE PO SCH ×3 (05:50→17:32)
[2018-06-07] MEDS: guaiFENesin 200 MG/10 ML 10 ML UNIT-DOSE CUPS PO SCH ×3 (05:51→18:11)
[2018-06-07] MEDS: NICOTINE 21 MG/24 HOURS TOPICAL PATCH TD SCH (10:06)
[2018-06-07] MEDS: PRENATAL VITAMINS W/ FOLIC ACID TABLET (FP) PO SCH (10:06)
[2018-06-07] MEDS: HYDROCHLOROTHIAZIDE 12.5 MG CAPSULE (FP) PO SCH (10:06)
[2018-06-07] MEDS: LISINOPRIL 10 MG TABLET (FP) PO SCH (10:06)
--- NOTE | 2018-06-07 10:06 | PN ---
[facility] CIWA - CIWA Score Nausea/Vomitin-No Nausea/No Vomiting Muscle Tremors: 2 Anxiety: 3 Agitation: 3 Paroxysmal Sweats: 2 Orientation: 0-Oriented Tacttile Disturbances: 0-None Auditory Disturbances: 0-None Visual Disturbances: 0-None Headache: 0-None Present CIWA-Ar Total Score: 10 BHS Progress Note (SOAP) Subjective: sweats restless agitation Objective: 06/07/18 10:05 Vital Signs Temperature 98.2 F 06/07/18 09:34 Pulse Rate 63 06/07/18 09:34 Respiratory Rate 16 06/07/18 09:34 Blood Pressure 135/81 06/07/18 09:34 O2 Sat by Pulse Oximetry (%) Laboratory Tests 06/05/18 06/06/18 06/06/18 22:00 06:30 06:30 WBC 6.1 RBC 4.55 Hgb 14.3 Hct 43.4 MCV 95.3 MCH 31.4 MCHC 32.9 RDW 13.7 Plt Count 163 MPV 8.6 Sodium 139 Potassium 3.7 Chloride 100 Carbon Dioxide 26 Anion Gap 12 BUN 10 Creatinine 0.9 Creat Clearance w eGFR > 60 Random Glucose 184 H Calcium 8.1 L Total Bilirubin 0.6 AST 24 ALT 27 Alkaline Phosphatase 69 Total Protein 6.9 Albumin 3.1 L Urine Color Yellow Urine Appearance Clear Urine pH 6.0 Ur Specific [place] 1.015 Urine Protein Negative Urine Glucose (UA) Negative Urine Ketones Negative Urine Blood 1+ H Urine Nitrite Negative Urine Bilirubin Negative Urine Urobilinogen Negative Ur Leukocyte Esterase Negative Urine WBC (Auto) 3 Urine RBC (Auto) 8 Urine Mucus Rare RPR Titer 06/06/18 06:30 WBC RBC Hgb Hct MCV MCH MCHC RDW Plt Count MPV Sodium Potassium Chloride Carbon Dioxide Anion Gap BUN Creatinine Creat Clearance w eGFR Random Glucose Calcium Total Bilirubin AST ALT Alkaline Phosphatase Total Protein Albumin Urine Color Urine Appearance Urine pH Ur Specific [place] Urine Protein Urine Glucose (UA) Urine Ketones Urine Blood Urine Nitrite Urine Bilirubin Urine Urobilinogen Ur Leukocyte Esterase Urine WBC (Auto) Urine RBC (Auto) Urine Mucus RPR Titer Nonreactive aaox3 ambulating no acute distress Assessment: 06/07/18 10:05 withdrawal sx Plan: continue detox increase fluids
[2018-06-07] MEDS: THIAMINE HCL 100 MG TABLET (FP) PO SCH (23:08)
[2018-06-07] MEDS: chlordiazePOXIDE 5 MG CAPSULE PO SCH (23:08)
[2018-06-08] MEDS: guaiFENesin 200 MG/10 ML 10 ML UNIT-DOSE CUPS PO SCH ×4 (00:30→17:39)
[2018-06-08] MEDS: chlordiazePOXIDE 5 MG CAPSULE PO SCH ×3 (05:17→17:39)
[2018-06-08] MEDS: LISINOPRIL 10 MG TABLET (FP) PO SCH (10:33)
[2018-06-08] MEDS: PRENATAL VITAMINS W/ FOLIC ACID TABLET (FP) PO SCH (10:33)
[2018-06-08] MEDS: NICOTINE 21 MG/24 HOURS TOPICAL PATCH TD SCH (10:34)
[2018-06-08] MEDS: HYDROCHLOROTHIAZIDE 12.5 MG CAPSULE (FP) PO SCH (10:34)
[2018-06-08] MEDS: THIAMINE HCL 100 MG TABLET (FP) PO SCH (22:09)
[2018-06-08] MEDS: chlordiazePOXIDE HCL 10 MG CAPSULE PO SCH (22:10)
[2018-06-08] MEDS: MELATONIN 5 MG TABLETS PO PRN (22:10)
[2018-06-09] MEDS: guaiFENesin 200 MG/10 ML 10 ML UNIT-DOSE CUPS PO SCH ×2 (00:01→05:15)
[2018-06-09] MEDS: chlordiazePOXIDE HCL 10 MG CAPSULE PO SCH (05:15)
--- NOTE | 2018-06-09 08:45 | DS ---
[facility] Detox Discharge Summary Admission Date: 06/05/18 Discharge Date: 06/09/18 - History Present History: Alcohol Dependence - Physical Exam Results Vital Signs: Vital Signs Temperature 97.2 F L 06/09/18 06:11 Pulse Rate 57 L 06/09/18 06:11 Respiratory Rate 17 06/09/18 06:11 Blood Pressure 95/69 06/09/18 06:11 O2 Sat by Pulse Oximetry (%) - Treatment Hospital Course: Detox Protocol Followed, Detoxed Safely, Responded well, Discharged Condition Good, Rehab Referral Accepted - Medication Discharge Medications: Ambulatory Orders Lisinopril/Hydrochlorothiazide [Lisinopril-Hctz 10-12.5 mg Tab] 1 each PO DAILY 02/20/18 - Diagnosis (1) Alcohol dependence with uncomplicated withdrawal Current Visit: Yes Status: Chronic (2) Dehydration Current Visit: Yes Status: Acute (3) Inspiratory wheeze on examination Current Visit: Yes Status: Acute (4) Nystagmus Current Visit: Yes Status: Acute (5) Cannabis dependence Current Visit: Yes Status: Chronic (6) Hypertension Current Visit: Yes Status: Chronic Qualifiers: Hypertension type: essential hypertension Qualified Code(s): I10 - Essential (primary) hypertension (7) Nicotine dependence Current Visit: Yes Status: Chronic Qualifiers: Nicotine product type: cigarettes Substance use status: in withdrawal Qualified Code(s): F17.213 - Nicotine dependence, cigarettes, with withdrawal (8) Weight loss Current Visit: No Status: Acute (9) Hepatitis-C Current Visit: No Status: Chronic Qualifiers: Viral hepatitis chronicity: chronic Hepatic coma status: without hepatic coma Qualified Code(s): B18.2 - Chronic viral hepatitis C (10) History of hepatitis C Current Visit: No Status: Chronic - AMA Did Patient Leave Against Medical Advice: No
[2018-06-09 09:24] VITALS: BP 143/84; PULSE 59; TEMP 97.9
== END 2018-06-09 09:23 | disposition home or self-care (01) | DRG 897 ==
LOC: YASAS 14:34 → Y6N 18:21
PROC: HZ2ZZZZ Detoxification Services for Substance Abuse Treatment (ICD-10-PCS; principal; 2018-06-05)
DX: F10.230 Alcohol dependence with withdrawal, uncomplicated (principal); F12.20 Cannabis dependence, uncomplicated; F17.213 Nicotine dependence, cigarettes, with withdrawal; I10 Essential (primary) hypertension; E86.0 Dehydration; H55.00 Unspecified nystagmus; B18.2 Chronic viral hepatitis C; R63.4 Abnormal weight loss; Z68.23 Body mass index [BMI] 23.0-23.9, adult; R06.2 Wheezing; R94.5 Abnormal results of liver function studies
CPT/HCPCS: 36415; 80053; 81003; 81015; 82947; 82962; 85027; 86593; 93005; 93010

== ENCOUNTER 2019-01-25 12:05 | Inpatient (IN) | payer OTHER ==
[2019-01-25 15:41] VITALS: BMI 24.5
--- NOTE | 2019-01-25 17:54 | HP ---
CIWA Score Nausea/Vomitin-No Nausea/No Vomiting Muscle Tremors: 3 Anxiety: 3 Agitation: 1-Slight > Activity Paroxysmal Sweats: 2 Orientation: 0-Oriented Tacttile Disturbances: 1-Very Mild Itch/Numbness Auditory Disturbances: 0-None Visual Disturbances: 0-None Headache: 1-Very Mild CIWA-Ar Total Score: 11 - Admission Criteria OAS Guidelines: Admission for Medically Managed Detox: Requires at least one of the followin. CIWA greater than 12 2. Seizures within the past 24 hours 3. Delirium tremens within the past 24 hours 4. Hallucinations within the past 24 hours 5. Acute intervention needed for co occurring medical disorder 6. Acute intervention needed for co occurring psychiatric disorder 7. Severe withdrawal that cannot be handled at a lower level of care (continued vomiting, continued diarrhea, abnormal vital signs) requiring intravenous medication and/or fluids 8. Patient presents the following: Acute intervention needed for co-occurring med or psych disorder Admission Criteria Met: Admission criteria met Admission ROS [facility] Chief Complaint: alcohol withdrawal symptoms Allergies/Adverse Reactions: Allergies Allergy/AdvReac Type Severity Reaction Status Date / Time No Known Allergies Allergy Verified 01/25/19 15:37 History of Present Illness: 68 yo male with hx of nicotine and alcohol and nicotine dependence is here seeking detox, this is one of multiple admissions. Patient reports no significant period of sobriety. PMHX: HTN (non-compliant with meds ). Psych: denies. Denies SI / HI. Denies hx of seizures or blackouts. Exam Limitations: No Limitations - Ebola screening Have you traveled outside of the country in the last 21 days: No (N) Have you had contact with anyone from an Ebola affected area: No Do you have a fever: No - Review of Systems Constitutional: Loss of Appetite, Changes in sleep, Weakness EENT: reports: No Symptoms Reported Respiratory: reports: Cough (x one week) Cardiac: reports: No Symptoms Reported GI: reports: Poor Appetite, Poor Fluid Intake : reports: No Symptoms Reported Musculoskeletal: reports: Back Pain Integumentary: reports: No Symptoms Reported Neuro: reports: Tremors Endocrine: reports: Increased Thirst Hematology: reports: No Symptoms Reported Psychiatric: reports: Orientated x3, Anxious Other Systems: Reviewed and Negative Patient History - Patient Medical History Hx Anemia: No Hx Asthma: No Hx Chronic Obstructive Pulmonary Disease (COPD): No Hx Cancer: No Hx Cardiac Disorders: No Hx Congestive Heart Failure: No Hx Hypertension: Yes (currently on Lisinopril) Hx Hypercholesterolemia: No Hx Pacemaker: No HX Cerebrovascular Accident: No Hx Seizures: No Hx Dementia: No Hx Diabetes: No Hx Gastrointestinal Disorders: No Hx Liver Disease: Yes (elevated LFTs) Hx Genitourinary Disorders: No Hx Sexually Transmitted Disorders: No Hx Renal Disease (ESRD): No Hx Thyroid Disease: No Hx Human Immunodeficiency Virus (HIV): No (NEGATIVE HX 2016) Hx Hepatitis C: Yes (TREATED) Hx Depression: No Hx Suicide Attempt: No Hx Bipolar Disorder: No Hx Schizophrenia: No - Patient Surgical History Past Surgical History: No Hx Neurologic Surgery: No Hx Cataract Extraction: No Hx Cardiac Surgery: No Hx Lung Surgery: No Hx Breast Surgery: No Hx Breast Biopsy: No Hx Abdominal Surgery: No Hx Appendectomy: No Hx Cholecystectomy: No Hx Genitourinary Surgery: No Hx Section: No Hx Orthopedic Surgery: No Anesthesia Reaction: No - PPD History Documented Results: Negative w/proof Date: 02/22/18 Results: 0 mm PPD to be Administered?: No - Smoking Cessation Smoking history: Current every day smoker Have you smoked in the past 12 months: Yes Aproximately how many cigarettes per day: 20 Hx Chewing Tobacco Use: No Initiated information on smoking cessation: Yes 'Breaking Loose' booklet given: 01/25/19 - Substance & Tx. History Hx Alcohol Use: Yes Hx Substance Use: Yes Substance Use Type: Alcohol Hx Substance Use Treatment: Yes ([facility] detox May 2018) - Substances abused Alcohol Substance route: Oral Frequency: Daily Amount used: 2x6 pack beer Age of first use: 26 Date of last use: 01/24/19 Family Disease History - Family Disease History Family Disease History: Heart Disease: Father ([place]), Other: Mother (, old age) Admission Physical Exam BHS - Vital Signs Vital Signs: Vital Signs - 24 hr 01/25/19 15:34 Temperature 98.6 F Pulse Rate 63 Respiratory 16 Rate Blood Pressure 179/98 H - Physical General Appearance: Yes: Appropriately Dressed, Mild Distress, Thin, Tremorous, Anxious HEENTM: Yes: EOMI, Hearing grossly Normal, Normal ENT Inspection, Normocephalic , Normal Voice, RODY, Pharynx Normal, Tm's normal, Other (cheilithis) Respiratory: Yes: Chest Non-Tender, Lungs Clear, Normal Breath Sounds, No Respiratory Distress, No Accessory Muscle Use Neck: Yes: Within Normal Limits Breast: Yes: Breast Exam Deferred Cardiology: Yes: Regular Rhythm, Regular Rate Abdominal: Yes: Normal Bowel Sounds, Non Tender, Flat, Soft Genitourinary: Yes: Within Normal Limits Back: Yes: Normal Inspection Musculoskeletal: Yes: full range of Motion, Gait Steady, Pelvis Stable Extremities: Yes: Normal Capillary Refill, Normal Inspection, Normal Range of Motion, Non-Tender Neurological: 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: 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 NML intact, Fully Oriented, Alert, Motor Strength 5/5, Depressed Affect Integumentary: Yes: Normal Color, Warm, Diaphoresis Lymphatic: Yes: Within Normal Limits - Diagnostic (1) Alcohol dependence with uncomplicated withdrawal Current Visit: Yes Status: Acute (2) Hypertension Current Visit: Yes Status: Chronic Qualifiers: Hypertension type: essential hypertension Qualified Code(s): I10 - Essential (primary) hypertension (3) Nicotine dependence Current Visit: Yes Status: Chronic Qualifiers: Nicotine product type: cigarettes Substance use status: in withdrawal Qualified Code(s): F17.213 - Nicotine dependence, cigarettes, with withdrawal Cleared for Admission S - Detox or Rehab [facility] Level of Care: Medically Managed Detox Regimen/Protocol: Librium Breathalyzer - Breathalyzer Breathalyzer: 0 Urine Drug Screen - Test Device Lot number: [id number] Expiration date: 04/07/20 - Control Is test valid?: Yes - Results Drug screen NEGATIVE: No Urine drug screen results: THC-Marijuana, BZO-Benzodiazepines Inpatient Rehab Admission - Rehab Decision to Admit Inpatient rehab admission?: No
[2019-01-25] MEDS ORDERED: MAG HYDROX/AL HYDROX/SIMETH 30 ML UNIT-DOSE CUP PO PRN (18:09)
[2019-01-25] MEDS ORDERED: BISMUTH SUBSALICYLATE 524 MG/30 ML UD PO PRN (18:09)
[2019-01-25] MEDS ORDERED: MENTHOL/PHENOL 1 EACH UD MM PRN (18:09)
[2019-01-25] MEDS ORDERED: METHOCARBAMOL 500 MG TABLET PO PRN (18:09)
[2019-01-25] MEDS ORDERED: chlordiazePOXIDE HCL 25 MG CAPSULE PO PRN (18:09)
[2019-01-25] MEDS ORDERED: IBUPROFEN 400 MG TABLET (FP) PO PRN (18:09)
[2019-01-25] MEDS ORDERED: ACETAMINOPHEN 325 MG TABLET (FP) PO PRN ×2 (18:09)
[2019-01-25] MEDS ORDERED: MAGNESIUM CITRATE 300 ML BOTTLE PO PRN (18:09)
[2019-01-25] MEDS ORDERED: NICOTINE POLACRILEX 2 MG GUM BUC PRN (18:09)
[2019-01-25] MEDS ORDERED: MAGNESIUM HYDROX 2400MG/30ML ORAL SUSPENSION 30 ML CUP PO PRN (18:09)
[2019-01-25] MEDS ORDERED: LISINOPRIL 10 MG TABLET (FP) PO SCH (18:15)
[2019-01-25] MEDS ORDERED: HYDROCHLOROTHIAZIDE 12.5 MG CAPSULE (FP) PO SCH (19:45)
[2019-01-25] MEDS: HYDROCHLOROTHIAZIDE 12.5 MG CAPSULE (FP) PO SCH (20:57)
[2019-01-25] MEDS: LISINOPRIL 10 MG TABLET (FP) PO SCH (20:57)
[2019-01-25] MEDS: THIAMINE HCL 100 MG TABLET (FP) PO SCH (23:00)
[2019-01-25] MEDS: chlordiazePOXIDE HCL 25 MG CAPSULE PO SCH (23:00)
[2019-01-25] MEDS: MELATONIN 5 MG TABLETS PO PRN (23:01)
[2019-01-26] MEDS: chlordiazePOXIDE HCL 25 MG CAPSULE PO SCH ×4 (05:41→22:29)
[2019-01-26 05:50] LABS: EPI CELLS 0.4 /HPF (0-5/HPF); HYALINE CASTS 3 /lpf (0-8); PH,URINE 6.5 (5.0-8.0); URINE APPEARANCE CLEAR; URINE BACTERIA 0.8 /hpf (NEGATIVE); URINE BILIRUBIN NEGATIVE (NEGATIVE); URINE COLOR YELLOW; URINE GLUCOSE (UA) NEGATIVE (NEGATIVE); URINE KETONE TRACE (NEGATIVE); URINE LEUK ESTERASE TRACE (NEGATIVE); URINE NITRITE NEGATIVE (NEGATIVE); URINE PROTEIN 1+ (NEGATIVE); URINE RBC 10 /hpf (0-4); URINE UROBILINOGEN 0.2 mg/dL (0.2-1.0); URINE WBC 1 /hpf (0-5)
[2019-01-26] MEDS: PRENATAL VITAMINS W/ FOLIC ACID TABLET (FP) PO SCH (10:18)
[2019-01-26] MEDS: HYDROCHLOROTHIAZIDE 12.5 MG CAPSULE (FP) PO SCH (10:18)
[2019-01-26] MEDS: NICOTINE 14 MG/24 HOURS TOPICAL PATCH TD SCH (10:18)
[2019-01-26] MEDS: LISINOPRIL 10 MG TABLET (FP) PO SCH (10:19)
[2019-01-26 11:47] LABS: HEMATOCRIT 43.5 % (35.4-49); HEMOGLOBIN 14.7 GM/dL (11.7-16.9); MCH 31.8 pg (25.7-33.7); MCHC 33.7 g/dl (32.0-35.9); MEAN CELL VOLUME 94.3 fl (80-96); MEAN PLT VOLUME 8.6 fl (7.5-11.1); PLATELET COUNT 222 K/MM3 (134-434); RBC 4.62 M/mm3 (4.00-5.60); RDW 14.2 % (11.9-15.9); WHITE BLOOD COUNT 6.7 K/mm3 (4.0-10.0)
[2019-01-26 11:50] LABS: ALBUMIN 3.5 g/dl (3.4-5.0); BLOOD UREA NITROGEN 9.2 mg/dL (7-18); CALCIUM 8.7 mg/dL (8.5-10.1); CREATININE 0.8 mg/dL (0.55-1.3); POTASSIUM 4.2 mmol/L (3.5-5.1); TOT PROT 7.3 g/dl (6.4-8.2)
--- NOTE | 2019-01-26 12:01 | PN ---
S CIWA - CIWA Score Nausea/Vomitin-No Nausea/No Vomiting Muscle Tremors: 2 Anxiety: 3 Agitation: 0-Normal Activity Paroxysmal Sweats: No Perspiration Orientation: 0-Oriented Tacttile Disturbances: 1-Very Mild Itch/Numbness Auditory Disturbances: 0-None Visual Disturbances: 3-Moderate Sensitivity Headache: 0-None Present CIWA-Ar Total Score: 9 BHS Progress Note (SOAP) Subjective: Tremors, Anxious, Interrupted Sleep. Objective: PATIENT A & O X 3, OBSERVED AMBULATING ON UNIT UNASSISTED. IN NO ACUTE DISTRESS. 01/26/19 12:03 Vital Signs Temperature 97.5 F L 01/26/19 09:38 Pulse Rate 58 L 01/26/19 09:38 Respiratory Rate 18 01/26/19 09:38 Blood Pressure 115/64 01/26/19 09:38 O2 Sat by Pulse Oximetry (%) Laboratory Tests 01/26/19 01/26/19 01/26/19 04:00 07:00 07:00 WBC 6.7 RBC 4.62 Hgb 14.7 Hct 43.5 MCV 94.3 MCH 31.8 MCHC 33.7 RDW 14.2 Plt Count 222 D MPV 8.6 Sodium 136 Potassium 4.2 Chloride 102 Carbon Dioxide 30 Anion Gap 4 L BUN 9.2 Creatinine 0.8 Est GFR (CKD-EPI)AfAm 107.13 Est GFR (CKD-EPI)NonAf 92.44 Random Glucose 120 H Calcium 8.7 Total Bilirubin 1.0 AST 44 H ALT 43 Alkaline Phosphatase 72 Total Protein 7.3 Albumin 3.5 Urine Color Yellow Urine Appearance Clear Urine pH 6.5 Ur Specific [place] 1.018 Urine Protein 1+ H Urine Glucose (UA) Negative Urine Ketones Trace H Urine Blood 1+ H Urine Nitrite Negative Urine Bilirubin Negative Urine Urobilinogen 0.2 Ur Leukocyte Esterase Trace Urine WBC (Auto) 1 Urine RBC (Auto) 10 Urine Casts (Auto) 3 U Epithel Cells (Auto) 0.4 Urine Bacteria (Auto) 0.8 LABS NOTED. RPR RESULT PENDING. 01/26/19 12:10 Assessment: 01/26/19 12:11 WITHDRAWAL SYMPTOMS. Plan: CONTINUE DETOX.
[2019-01-26] MEDS: THIAMINE HCL 100 MG TABLET (FP) PO SCH (22:29)
[2019-01-26] MEDS: MELATONIN 5 MG TABLETS PO PRN (22:30)
[2019-01-27] MEDS: chlordiazePOXIDE HCL 25 MG CAPSULE PO SCH ×3 (05:14→17:18)
[2019-01-27] MEDS: NICOTINE 14 MG/24 HOURS TOPICAL PATCH TD SCH (10:20)
[2019-01-27] MEDS: LISINOPRIL 10 MG TABLET (FP) PO SCH (10:20)
[2019-01-27] MEDS: PRENATAL VITAMINS W/ FOLIC ACID TABLET (FP) PO SCH (10:20)
[2019-01-27] MEDS: HYDROCHLOROTHIAZIDE 12.5 MG CAPSULE (FP) PO SCH (10:20)
--- NOTE | 2019-01-27 10:23 | PN ---
S CIWA - CIWA Score Nausea/Vomitin-No Nausea/No Vomiting Muscle Tremors: None Anxiety: 3 Agitation: 0-Normal Activity Paroxysmal Sweats: 3 Orientation: 0-Oriented Tacttile Disturbances: 0-None Auditory Disturbances: 0-None Visual Disturbances: 0-None Headache: 2-Mild CIWA-Ar Total Score: 8 BHS Progress Note (SOAP) Subjective: c/o headache, sweats, and anxiety. Objective: 01/27/19 10:23 Vital Signs 01/27/19 01/27/19 01/27/19 03:30 06:30 09:48 Temperature 97.6 F 97.0 F L Pulse Rate 61 60 Respiratory 18 16 20 Rate Blood Pressure 132/82 133/80 Lab Results WBC 6.7 K/mm3 (4.0-10.0) 01/26/19 07:00 RBC 4.62 M/mm3 (4.00-5.60) 01/26/19 07:00 Hgb 14.7 GM/dL (11.7-16.9) 01/26/19 07:00 Hct 43.5 % (35.4-49) 01/26/19 07:00 MCV 94.3 fl (80-96) 01/26/19 07:00 MCHC 33.7 g/dl (32.0-35.9) 01/26/19 07:00 RDW 14.2 % (11.9-15.9) 01/26/19 07:00 Plt Count 222 K/MM3 (134-434) D 01/26/19 07:00 Sodium 136 mmol/L (136-145) 01/26/19 07:00 Potassium 4.2 mmol/L (3.5-5.1) 01/26/19 07:00 Chloride 102 mmol/L (98-107) 01/26/19 07:00 Carbon Dioxide 30 mmol/L (21-32) 01/26/19 07:00 Anion Gap 4 MMOL/L (8-16) L 01/26/19 07:00 BUN 9.2 mg/dL (7-18) 01/26/19 07:00 Creatinine 0.8 mg/dL (0.55-1.3) 01/26/19 07:00 Random Glucose 120 mg/dL (74-106) H 01/26/19 07:00 Calcium 8.7 mg/dL (8.5-10.1) 01/26/19 07:00 Labs noted. Assessment: 01/27/19 10:23 AOX3, in no acute distress. Full rom, ambulates in the unit. withdrawal signs Plan: continue detox.
[2019-01-27] MEDS: THIAMINE HCL 100 MG TABLET (FP) PO SCH (22:28)
[2019-01-27] MEDS: chlordiazePOXIDE HCL 10 MG CAPSULE PO SCH (22:28)
[2019-01-27] MEDS: MELATONIN 5 MG TABLETS PO PRN (22:28)
[2019-01-27] MEDS ORDERED: chlordiazePOXIDE HCL 10 MG CAPSULE PO PRN (23:00)
[2019-01-28] MEDS: chlordiazePOXIDE HCL 10 MG CAPSULE PO SCH ×4 (06:05→22:17)
[2019-01-28] MEDS: PRENATAL VITAMINS W/ FOLIC ACID TABLET (FP) PO SCH (10:18)
[2019-01-28] MEDS: HYDROCHLOROTHIAZIDE 12.5 MG CAPSULE (FP) PO SCH (10:18)
[2019-01-28] MEDS: LISINOPRIL 10 MG TABLET (FP) PO SCH (10:18)
[2019-01-28] MEDS: NICOTINE 14 MG/24 HOURS TOPICAL PATCH TD SCH (10:18)
--- NOTE | 2019-01-28 13:56 | PN ---
S CIWA - CIWA Score Nausea/Vomitin Muscle Tremors: 2 Anxiety: 1-Mildly Anxious Agitation: 1-Slight > Activity Paroxysmal Sweats: 1-Minimal Palms Moist Orientation: 0-Oriented Tacttile Disturbances: 1-Very Mild Itch/Numbness Auditory Disturbances: 0-None Visual Disturbances: 0-None Headache: 1-Very Mild CIWA-Ar Total Score: 9 BHS Progress Note (SOAP) Subjective: shaky, poor sleep, anxious Objective: Laboratory Tests 01/26/19 01/26/19 01/26/19 04:00 07:00 07:00 WBC 6.7 RBC 4.62 Hgb 14.7 Hct 43.5 MCV 94.3 MCH 31.8 MCHC 33.7 RDW 14.2 Plt Count 222 D MPV 8.6 Sodium 136 Potassium 4.2 Chloride 102 Carbon Dioxide 30 Anion Gap 4 L BUN 9.2 Creatinine 0.8 Est GFR (CKD-EPI)AfAm 107.13 Est GFR (CKD-EPI)NonAf 92.44 Random Glucose 120 H Calcium 8.7 Total Bilirubin 1.0 AST 44 H ALT 43 Alkaline Phosphatase 72 Total Protein 7.3 Albumin 3.5 Urine Color Yellow Urine Appearance Clear Urine pH 6.5 Ur Specific [place] 1.018 Urine Protein 1+ H Urine Glucose (UA) Negative Urine Ketones Trace H Urine Blood 1+ H Urine Nitrite Negative Urine Bilirubin Negative Urine Urobilinogen 0.2 Ur Leukocyte Esterase Trace Urine WBC (Auto) 1 Urine RBC (Auto) 10 Urine Casts (Auto) 3 U Epithel Cells (Auto) 0.4 Urine Bacteria (Auto) 0.8 RPR Titer HIV 1&2 Antibody Screen HIV P24 Antigen 01/26/19 01/26/19 07:00 12:00 WBC RBC Hgb Hct MCV MCH MCHC RDW Plt Count MPV Sodium Potassium Chloride Carbon Dioxide Anion Gap BUN Creatinine Est GFR (CKD-EPI)AfAm Est GFR (CKD-EPI)NonAf Random Glucose Calcium Total Bilirubin AST ALT Alkaline Phosphatase Total Protein Albumin Urine Color Urine Appearance Urine pH Ur Specific [place] Urine Protein Urine Glucose (UA) Urine Ketones Urine Blood Urine Nitrite Urine Bilirubin Urine Urobilinogen Ur Leukocyte Esterase Urine WBC (Auto) Urine RBC (Auto) Urine Casts (Auto) U Epithel Cells (Auto) Urine Bacteria (Auto) RPR Titer Nonreactive HIV 1&2 Antibody Screen Negative HIV P24 Antigen Negative Vital Signs - 24 hr 01/27/19 01/27/19 01/28/19 17:53 22:19 00:30 Temperature 97.4 F L 97.3 F L Pulse Rate 59 L 59 L Respiratory 18 18 18 Rate Blood Pressure 127/80 146/84 01/28/19 01/28/19 01/28/19 03:30 06:32 09:21 Temperature 96.5 F L 96.6 F L Pulse Rate 53 L 57 L Respiratory 18 20 18 Rate Blood Pressure 123/70 175/87 H 01/28/19 13:19 Temperature 98.2 F Pulse Rate 68 Respiratory 18 Rate Blood Pressure 150/81 ambulatory, oriented, alert Assessment: 01/28/19 13:59 ONGOING WITHDRAWAL Plan: CONTINUE DETOX PROTOCOL
[2019-01-28] MEDS: THIAMINE HCL 100 MG TABLET (FP) PO SCH (22:17)
[2019-01-28] MEDS: MELATONIN 5 MG TABLETS PO PRN (22:17)
[2019-01-29 09:18] VITALS: PULSE 67
[2019-01-29] MEDS: HYDROCHLOROTHIAZIDE 12.5 MG CAPSULE (FP) PO SCH (11:09)
[2019-01-29] MEDS: LISINOPRIL 10 MG TABLET (FP) PO SCH (11:09)
[2019-01-29] MEDS: NICOTINE 14 MG/24 HOURS TOPICAL PATCH TD SCH (11:10)
[2019-01-29] MEDS: PRENATAL VITAMINS W/ FOLIC ACID TABLET (FP) PO SCH (11:10)
[2019-01-29] MEDS: chlordiazePOXIDE HCL 10 MG CAPSULE PO SCH (11:10)
[2019-01-29 13:25] VITALS: BP 170/87; TEMP 98
--- NOTE | 2019-01-29 22:38 | PN ---
S CIWA - CIWA Score Nausea/Vomitin-No Nausea/No Vomiting Muscle Tremors: None Anxiety: 0-No Anxiety, at Ease Agitation: 0-Normal Activity Paroxysmal Sweats: No Perspiration Orientation: 0-Oriented Tacttile Disturbances: 0-None Auditory Disturbances: 0-None Visual Disturbances: 0-None Headache: 0-None Present CIWA-Ar Total Score: 0 [facility] Progress Note (SOAP) Subjective: Patient denies current Withdrawal / Detox symptoms and reports that he feels well overall at this time. Objective: PATIENT A & O X 3, OBSERVED AMBULATING ON UNIT UNASSISTED. IN NO ACUTE DISTRESS. 01/29/19 22:36 Vital Signs Temperature 98.0 F 01/29/19 13:24 Pulse Rate 67 01/29/19 13:24 Respiratory Rate 18 01/29/19 13:24 Blood Pressure 170/87 01/29/19 13:24 O2 Sat by Pulse Oximetry (%) Laboratory Tests 01/26/19 01/26/19 01/26/19 04:00 07:00 07:00 WBC 6.7 RBC 4.62 Hgb 14.7 Hct 43.5 MCV 94.3 MCH 31.8 MCHC 33.7 RDW 14.2 Plt Count 222 D MPV 8.6 Sodium 136 Potassium 4.2 Chloride 102 Carbon Dioxide 30 Anion Gap 4 L BUN 9.2 Creatinine 0.8 Est GFR (CKD-EPI)AfAm 107.13 Est GFR (CKD-EPI)NonAf 92.44 Random Glucose 120 H Calcium 8.7 Total Bilirubin 1.0 AST 44 H ALT 43 Alkaline Phosphatase 72 Total Protein 7.3 Albumin 3.5 Urine Color Yellow Urine Appearance Clear Urine pH 6.5 Ur Specific [place] 1.018 Urine Protein 1+ H Urine Glucose (UA) Negative Urine Ketones Trace H Urine Blood 1+ H Urine Nitrite Negative Urine Bilirubin Negative Urine Urobilinogen 0.2 Ur Leukocyte Esterase Trace Urine WBC (Auto) 1 Urine RBC (Auto) 10 Urine Casts (Auto) 3 U Epithel Cells (Auto) 0.4 Urine Bacteria (Auto) 0.8 RPR Titer HIV 1&2 Antibody Screen HIV P24 Antigen 01/26/19 01/26/19 07:00 12:00 WBC RBC Hgb Hct MCV MCH MCHC RDW Plt Count MPV Sodium Potassium Chloride Carbon Dioxide Anion Gap BUN Creatinine Est GFR (CKD-EPI)AfAm Est GFR (CKD-EPI)NonAf Random Glucose Calcium Total Bilirubin AST ALT Alkaline Phosphatase Total Protein Albumin Urine Color Urine Appearance Urine pH Ur Specific [place] Urine Protein Urine Glucose (UA) Urine Ketones Urine Blood Urine Nitrite Urine Bilirubin Urine Urobilinogen Ur Leukocyte Esterase Urine WBC (Auto) Urine RBC (Auto) Urine Casts (Auto) U Epithel Cells (Auto) Urine Bacteria (Auto) RPR Titer Nonreactive HIV 1&2 Antibody Screen Negative HIV P24 Antigen Negative LABS NOTED. Assessment: 01/29/19 22:37 COMPLETION OF DETOX REGIMEN. 01/29/19 22:38 Plan: PATIENT TO BE DISCHARGED FROM DETOX UNIT TODAY.
--- NOTE | 2019-01-29 22:43 | DS ---
[facility] Detox Discharge Summary Admission Date: 01/25/19 Discharge Date: 01/29/19 - History Present History: Alcohol Dependence Additional Comments: PATIENT DENIES CURRENT WITHDRAWAL / DETOX SYMPTOMS AND REPORTS THAT HE FEELS WELL OVERALL AT TIME OF DISCHARGE FROM DETOX UNIT. PATIENT GOING TO [facility] ([place], [place]) FOR AFTERCARE. PATIENT DECLINED OFFER OF MEDICATION PRESCRIPTION FOR HOME MEDICATION AT TIME OF DISCHARGE FROM DETOX, NOTING THAT HE CURRENTLY HAS ADEQUATE SUPPLIES OF ALL PRESCRIBED HOME MEDICATIONS AT HOME. PATIENT WAS DISCHARGED FROM DETOX UNIT IN STABLE MEDICAL CONDITION. Pertinent Past History: Nicotine Dependence, Hep C, HTN, History Of Elevated Liver Function Tests. - Physical Exam Results Vital Signs: Vital Signs Temperature 98.0 F 01/29/19 13:24 Pulse Rate 67 01/29/19 13:24 Respiratory Rate 18 01/29/19 13:24 Blood Pressure 170/87 01/29/19 13:24 O2 Sat by Pulse Oximetry (%) Pertinent Admission Physical Exam Findings: WITHDRAWAL SYMPTOMS. Laboratory Tests 01/26/19 01/26/19 01/26/19 04:00 07:00 07:00 WBC 6.7 RBC 4.62 Hgb 14.7 Hct 43.5 MCV 94.3 MCH 31.8 MCHC 33.7 RDW 14.2 Plt Count 222 D MPV 8.6 Sodium 136 Potassium 4.2 Chloride 102 Carbon Dioxide 30 Anion Gap 4 L BUN 9.2 Creatinine 0.8 Est GFR (CKD-EPI)AfAm 107.13 Est GFR (CKD-EPI)NonAf 92.44 Random Glucose 120 H Calcium 8.7 Total Bilirubin 1.0 AST 44 H ALT 43 Alkaline Phosphatase 72 Total Protein 7.3 Albumin 3.5 Urine Color Yellow Urine Appearance Clear Urine pH 6.5 Ur Specific [place] 1.018 Urine Protein 1+ H Urine Glucose (UA) Negative Urine Ketones Trace H Urine Blood 1+ H Urine Nitrite Negative Urine Bilirubin Negative Urine Urobilinogen 0.2 Ur Leukocyte Esterase Trace Urine WBC (Auto) 1 Urine RBC (Auto) 10 Urine Casts (Auto) 3 U Epithel Cells (Auto) 0.4 Urine Bacteria (Auto) 0.8 RPR Titer HIV 1&2 Antibody Screen HIV P24 Antigen 01/26/19 01/26/19 07:00 12:00 WBC RBC Hgb Hct MCV MCH MCHC RDW Plt Count MPV Sodium Potassium Chloride Carbon Dioxide Anion Gap BUN Creatinine Est GFR (CKD-EPI)AfAm Est GFR (CKD-EPI)NonAf Random Glucose Calcium Total Bilirubin AST ALT Alkaline Phosphatase Total Protein Albumin Urine Color Urine Appearance Urine pH Ur Specific [place] Urine Protein Urine Glucose (UA) Urine Ketones Urine Blood Urine Nitrite Urine Bilirubin Urine Urobilinogen Ur Leukocyte Esterase Urine WBC (Auto) Urine RBC (Auto) Urine Casts (Auto) U Epithel Cells (Auto) Urine Bacteria (Auto) RPR Titer Nonreactive HIV 1&2 Antibody Screen Negative HIV P24 Antigen Negative LABS NOTED. - Treatment Hospital Course: Detox Protocol Followed, Detoxed Safely, Responded well, Discharged Condition Good Patient has Accepted a Rehab Referral to: PT. GOING TO [facility] ([place], [place]). - Medication Discharge Medications: Ambulatory Orders Lisinopril/Hydrochlorothiazide [Lisinopril-Hctz 10-12.5 mg Tab] 1 each PO DAILY 02/20/18 - Diagnosis (1) Alcohol dependence with uncomplicated withdrawal Status: Acute (2) Hypertension Status: Chronic Qualifiers: Hypertension type: essential hypertension Qualified Code(s): I10 - Essential (primary) hypertension (3) Nicotine dependence Status: Chronic Qualifiers: Nicotine product type: cigarettes Substance use status: in withdrawal Qualified Code(s): F17.213 - Nicotine dependence, cigarettes, with withdrawal - AMA Did Patient Leave Against Medical Advice: No
== END 2019-01-29 13:05 | disposition home or self-care (01) | DRG 897 ==
LOC: YASAS 12:05 → Y3N 20:04
PROVIDERS: ADMIT Surgery; ATTEND Surgery
PROC: HZ2ZZZZ Detoxification Services for Substance Abuse Treatment (ICD-10-PCS; principal; 2019-01-25)
DX: F10.230 Alcohol dependence with withdrawal, uncomplicated (principal); F17.210 Nicotine dependence, cigarettes, uncomplicated; I10 Essential (primary) hypertension; B18.2 Chronic viral hepatitis C; R94.5 Abnormal results of liver function studies
CPT/HCPCS: 36415; 80053; 81003; 85027; 86593; 87389

== ENCOUNTER 2019-05-01 13:07 | Inpatient (IN) | payer OTHER ==
[2019-05-01 19:17] VITALS: BMI 23.5
--- NOTE | 2019-05-01 20:23 | HP ---
CIWA Score Nausea/Vomitin-Mild Nausea/No Vomiting Muscle Tremors: 2 Anxiety: 2 Agitation: 3 Paroxysmal Sweats: 2 Orientation: 0-Oriented Tacttile Disturbances: 0-None Auditory Disturbances: 0-None Visual Disturbances: 0-None Headache: 2-Mild CIWA-Ar Total Score: 12 - Admission Criteria OASAS Guidelines: Admission for Medically Managed Detox: Requires at least one of the followin. CIWA greater than 12 2. Seizures within the past 24 hours 3. Delirium tremens within the past 24 hours 4. Hallucinations within the past 24 hours 5. Acute intervention needed for co occurring medical disorder 6. Acute intervention needed for co occurring psychiatric disorder 7. Severe withdrawal that cannot be handled at a lower level of care (continued vomiting, continued diarrhea, abnormal vital signs) requiring intravenous medication and/or fluids 8. Patient presents the following: CIWA greater than 12 Admission Criteria Met: Admission criteria met Admission ROS [facility] Chief Complaint: requesting alcohol detox Allergies/Adverse Reactions: Allergies Allergy/AdvReac Type Severity Reaction Status Date / Time No Known Allergies Allergy Verified 05/01/19 19:09 History of Present Illness: 68 yo with HTN on lisinopril, lives alone in an SRO, last here about 3 months ago. Says his last drink was 10 hours ago. JAI-0. Says he goes to AA meetings. alcohol- 6 pack a day, no h/o seizures or DT's marijuana- occ use DUR- no meds noted - Ebola screening Have you traveled outside of the country in the last 21 days: No Have you had contact with anyone from an Ebola affected area: No Patient History - Patient Medical History Hx Anemia: No Hx Asthma: No Hx Chronic Obstructive Pulmonary Disease (COPD): No Hx Cancer: No Hx Cardiac Disorders: No Hx Congestive Heart Failure: No Hx Hypertension: Yes Hx Hypercholesterolemia: No Hx Pacemaker: No HX Cerebrovascular Accident: No Hx Seizures: No Hx Dementia: No Hx Diabetes: No Hx Gastrointestinal Disorders: No Hx Liver Disease: Yes (elevated LFTs) Hx Genitourinary Disorders: No Hx Sexually Transmitted Disorders: No Hx Renal Disease (ESRD): No Hx Thyroid Disease: No Hx Human Immunodeficiency Virus (HIV): No (NEGATIVE HX 2016) Hx Hepatitis C: Yes (TREATED) Hx Depression: No Hx Suicide Attempt: No Hx Bipolar Disorder: No Hx Schizophrenia: No - Patient Surgical History Past Surgical History: No Hx Neurologic Surgery: No Hx Cataract Extraction: No Hx Cardiac Surgery: No Hx Lung Surgery: No Hx Breast Surgery: No Hx Breast Biopsy: No Hx Abdominal Surgery: No Hx Appendectomy: No Hx Cholecystectomy: No Hx Genitourinary Surgery: No Hx Section: No Hx Orthopedic Surgery: No Anesthesia Reaction: No - PPD History Date: 02/22/18 Results: 0 mm - Smoking Cessation Smoking history: Current every day smoker Have you smoked in the past 12 months: Yes Aproximately how many cigarettes per day: 20 Hx Chewing Tobacco Use: No Initiated information on smoking cessation: Yes 'Breaking Loose' booklet given: 05/01/19 - Substances abused Alcohol Substance route: Oral Frequency: Daily Amount used: 2x6 pack beer Age of first use: 26 Date of last use: 05/01/19 Admission Physical Exam [facility] - Vital Signs Vital Signs: Vital Signs - 24 hr 05/01/19 19:09 Temperature 99 F Pulse Rate 68 Respiratory 16 Rate Blood Pressure 164/98 - Physical General Appearance: Yes: Within Normal Limits, Thin HEENTM: Yes: Within Normal Limits, Hearing grossly Normal, Normal Voice, RODY Respiratory: Yes: Within Normal Limits, Lungs Clear Neck: Yes: Within Normal Limits Cardiology: Yes: Within Normal Limits, Regular Rhythm, Regular Rate Abdominal: Yes: Within Normal Limits, Non Tender Back: Yes: Within Normal Limits, Normal Inspection Musculoskeletal: Yes: Within Normal Limits Extremities: Yes: Within Normal Limits Neurological: Yes: Within Normal Limits, Fully Oriented, Alert Integumentary: Yes: Within Normal Limits Lymphatic: Yes: Within Normal Limits - Diagnostic (1) Alcohol dependence with uncomplicated withdrawal Current Visit: No Status: Acute (2) Cannabis dependence Current Visit: No Status: Chronic (3) Hypertension Current Visit: No Status: Chronic Qualifiers: Hypertension type: essential hypertension Qualified Code(s): I10 - Essential (primary) hypertension Cleared for Admission [facility] - Detox or Rehab [facility] Level of Care: Medically Managed Breathalyzer - Breathalyzer Breathalyzer: 0 Urine Drug Screen - Test Device Lot number: [id number] Expiration date: 01/05/21 - Control Is test valid?: Yes - Results Drug screen NEGATIVE: No Urine drug screen results: THC-Marijuana Inpatient Rehab Admission - Rehab Decision to Admit Inpatient rehab admission?: No
[2019-05-01] MEDS ORDERED: hydrOXYzine PAMOATE 25 MG CAPSULE (FP) PO PRN (20:30)
[2019-05-01] MEDS ORDERED: MAGNESIUM CITRATE 300 ML BOTTLE PO PRN (20:30)
[2019-05-01] MEDS ORDERED: ONDANSETRON *ODT* 4 MG TABLET SL PRN (20:30)
[2019-05-01] MEDS ORDERED: BISMUTH SUBSALICYLATE 524 MG/30 ML UD PO PRN (20:30)
[2019-05-01] MEDS ORDERED: IBUPROFEN 400 MG TABLET (FP) PO PRN ×2 (20:30)
[2019-05-01] MEDS ORDERED: ACETAMINOPHEN 325 MG TABLET (FP) PO PRN (20:30)
[2019-05-01] MEDS ORDERED: METHOCARBAMOL 500 MG TABLET PO PRN (20:30)
[2019-05-01] MEDS ORDERED: MAG HYDROX/AL HYDROX/SIMETH 30 ML UNIT-DOSE CUP PO PRN (20:30)
[2019-05-01] MEDS ORDERED: MAGNESIUM HYDROX 2400MG/30ML ORAL SUSPENSION 30 ML CUP PO PRN (20:30)
[2019-05-01] MEDS ORDERED: MENTHOL/PHENOL 1 EACH UD MM PRN (20:30)
[2019-05-01] MEDS ORDERED: chlordiazePOXIDE HCL 10 MG CAPSULE PO PRN (20:30)
[2019-05-01] MEDS: THIAMINE HCL 100 MG TABLET (FP) PO SCH (21:53)
[2019-05-01] MEDS: MELATONIN 5 MG TABLETS PO PRN (21:53)
[2019-05-01] MEDS: chlordiazePOXIDE HCL 25 MG CAPSULE PO SCH (21:53)
[2019-05-02] MEDS: chlordiazePOXIDE HCL 25 MG CAPSULE PO SCH ×3 (05:28→22:28)
[2019-05-02 11:09] LABS: HEMOGLOBIN 15.7 GM/dL (11.7-16.9); MCH 32.4 pg (25.7-33.7); MCHC 34.2 g/dl (32.0-35.9); MEAN CELL VOLUME 94.6 fl (80-96); MEAN PLT VOLUME 8.1 fl (7.5-11.1); PLATELET COUNT 231 K/MM3 (134-434); RBC 4.86 M/mm3 (4.00-5.60); RDW 13.7 % (11.9-15.9); WHITE BLOOD COUNT 6.7 K/mm3 (4.0-10.0)
--- NOTE | 2019-05-02 11:16 | PN ---
S CIWA - CIWA Score Nausea/Vomitin-No Nausea/No Vomiting Muscle Tremors: 4-Moderate,w/Arms Extend Anxiety: 3 Agitation: 2 Paroxysmal Sweats: 1-Minimal Palms Moist Orientation: 1-Uncertain about Date (date of week) Tacttile Disturbances: 0-None Auditory Disturbances: 0-None Visual Disturbances: 0-None Headache: 2-Mild CIWA-Ar Total Score: 13 S Progress Note (SOAP) Subjective: reporting do well with librium detox regimen less tremor able to eat breakfast tolerate food and fluid well sleep better last night Objective: 05/02/19 11:15 Vital Signs Temperature 97.1 F L 05/02/19 09:42 Pulse Rate 61 05/02/19 09:42 Respiratory Rate 18 05/02/19 09:42 Blood Pressure 128/74 05/02/19 09:42 O2 Sat by Pulse Oximetry (%) Laboratory Last Values WBC 6.7 K/mm3 (4.0-10.0) 05/02/19 07:45 RBC 4.86 M/mm3 (4.00-5.60) 05/02/19 07:45 Hgb 15.7 GM/dL (11.7-16.9) 05/02/19 07:45 Hct 46.0 % (35.4-49) 05/02/19 07:45 MCV 94.6 fl (80-96) 05/02/19 07:45 MCH 32.4 pg (25.7-33.7) 05/02/19 07:45 MCHC 34.2 g/dl (32.0-35.9) 05/02/19 07:45 RDW 13.7 % (11.9-15.9) 05/02/19 07:45 Plt Count 231 K/MM3 (134-434) 05/02/19 07:45 MPV 8.1 fl (7.5-11.1) 05/02/19 07:45 lab noted Assessment: 05/02/19 11:15 alcohol withdrawal sx Plan: continue librium detox regimen
[2019-05-02 11:29] LABS: ALBUMIN 3.4 g/dl (3.4-5.0); BLOOD UREA NITROGEN 8.8 mg/dL (7-18); POTASSIUM 4.3 mmol/L (3.5-5.1); TOT PROT 7.1 g/dl (6.4-8.2)
[2019-05-02] MEDS: NICOTINE 14 MG/24 HOURS TOPICAL PATCH TD SCH (11:38)
[2019-05-02] MEDS: PRENATAL VITAMINS W/ FOLIC ACID TABLET (FP) PO SCH (11:38)
[2019-05-02] MEDS: THIAMINE HCL 100 MG TABLET (FP) PO SCH (22:28)
[2019-05-02] MEDS: MELATONIN 5 MG TABLETS PO PRN (22:29)
[2019-05-03] MEDS: chlordiazePOXIDE 5 MG CAPSULE PO SCH ×3 (06:02→22:24)
[2019-05-03] MEDS: NICOTINE 14 MG/24 HOURS TOPICAL PATCH TD SCH (10:32)
[2019-05-03] MEDS: PRENATAL VITAMINS W/ FOLIC ACID TABLET (FP) PO SCH (10:32)
--- NOTE | 2019-05-03 10:45 | PN ---
[facility] CIWA - CIWA Score Nausea/Vomitin-No Nausea/No Vomiting Muscle Tremors: 3 Anxiety: 4-Mod. Anxious/Guarded Agitation: 2 Paroxysmal Sweats: 2 Orientation: 0-Oriented Tacttile Disturbances: 0-None Auditory Disturbances: 0-None Visual Disturbances: 0-None Headache: 0-None Present CIWA-Ar Total Score: 11 S Progress Note (SOAP) Subjective: ate breakfast tolerate food and fluid well no nausea Objective: 05/03/19 10:41 Vital Signs Temperature 97.3 F L 05/03/19 09:22 Pulse Rate 67 05/03/19 09:22 Respiratory Rate 18 05/03/19 09:22 Blood Pressure 147/80 05/03/19 09:22 O2 Sat by Pulse Oximetry (%) Laboratory Last Values WBC 6.7 K/mm3 (4.0-10.0) 05/02/19 07:45 RBC 4.86 M/mm3 (4.00-5.60) 05/02/19 07:45 Hgb 15.7 GM/dL (11.7-16.9) 05/02/19 07:45 Hct 46.0 % (35.4-49) 05/02/19 07:45 MCV 94.6 fl (80-96) 05/02/19 07:45 MCH 32.4 pg (25.7-33.7) 05/02/19 07:45 MCHC 34.2 g/dl (32.0-35.9) 05/02/19 07:45 RDW 13.7 % (11.9-15.9) 05/02/19 07:45 Plt Count 231 K/MM3 (134-434) 05/02/19 07:45 MPV 8.1 fl (7.5-11.1) 05/02/19 07:45 Sodium 137 mmol/L (136-145) 05/02/19 07:45 Potassium 4.3 mmol/L (3.5-5.1) 05/02/19 07:45 Chloride 100 mmol/L (98-107) 05/02/19 07:45 Carbon Dioxide 31 mmol/L (21-32) 05/02/19 07:45 Anion Gap 6 MMOL/L (8-16) L 05/02/19 07:45 BUN 8.8 mg/dL (7-18) 05/02/19 07:45 Creatinine 1.0 mg/dL (0.55-1.3) 05/02/19 07:45 Est GFR (CKD-EPI)AfAm 89.86 05/02/19 07:45 Est GFR (CKD-EPI)NonAf 77.54 05/02/19 07:45 Random Glucose 118 mg/dL (74-106) H 05/02/19 07:45 Calcium 9.0 mg/dL (8.5-10.1) 05/02/19 07:45 Total Bilirubin 1.0 mg/dL (0.2-1) 05/02/19 07:45 AST 38 U/L (15-37) H 05/02/19 07:45 ALT 47 U/L (13-61) 05/02/19 07:45 Alkaline Phosphatase 71 U/L (45-117) 05/02/19 07:45 Total Protein 7.1 g/dl (6.4-8.2) 05/02/19 07:45 Albumin 3.4 g/dl (3.4-5.0) 05/02/19 07:45 RPR Titer Nonreactive (NONREACTIVE) 05/02/19 07:45 lab noted bp elevation resume hctz and lisinopril Assessment: 05/03/19 10:44 alcohol withdrawal sx Plan: continue librium detox regimen
[2019-05-03] MEDS: HYDROCHLOROTHIAZIDE 12.5 MG CAPSULE (FP) PO SCH (11:45)
[2019-05-03] MEDS: LISINOPRIL 10 MG TABLET (FP) PO SCH (11:45)
[2019-05-03] MEDS: THIAMINE HCL 100 MG TABLET (FP) PO SCH (22:24)
[2019-05-03] MEDS: MELATONIN 5 MG TABLETS PO PRN (22:24)
[2019-05-04] MEDS ORDERED: chlordiazePOXIDE HCL 10 MG CAPSULE PO PRN
[2019-05-04] MEDS: chlordiazePOXIDE HCL 10 MG CAPSULE PO SCH ×3 (05:51→22:18)
[2019-05-04] MEDS: PRENATAL VITAMINS W/ FOLIC ACID TABLET (FP) PO SCH (10:17)
[2019-05-04] MEDS: NICOTINE 14 MG/24 HOURS TOPICAL PATCH TD SCH (10:18)
[2019-05-04] MEDS: HYDROCHLOROTHIAZIDE 12.5 MG CAPSULE (FP) PO SCH (10:18)
[2019-05-04] MEDS: LISINOPRIL 10 MG TABLET (FP) PO SCH (10:18)
--- NOTE | 2019-05-04 14:15 | PN ---
[facility] CIWA - CIWA Score Nausea/Vomitin-No Nausea/No Vomiting Muscle Tremors: 1-None Visible, but [place] Anxiety: 1-Mildly Anxious Agitation: 0-Normal Activity Paroxysmal Sweats: 2 Orientation: 0-Oriented Tacttile Disturbances: 1-Very Mild Itch/Numbness Auditory Disturbances: 0-None Visual Disturbances: 0-None Headache: 0-None Present CIWA-Ar Total Score: 5 S Progress Note (SOAP) Subjective: c/o interrupted sleep, chills, reports improvement in withdrawal sx Objective: 05/04/19 14:14 Vital Signs Temperature 97.5 F L 05/04/19 13:24 Pulse Rate 67 05/04/19 13:24 Respiratory Rate 18 05/04/19 13:24 Blood Pressure 152/88 05/04/19 13:24 O2 Sat by Pulse Oximetry (%) Laboratory Last Values WBC 6.7 K/mm3 (4.0-10.0) 05/02/19 07:45 RBC 4.86 M/mm3 (4.00-5.60) 05/02/19 07:45 Hgb 15.7 GM/dL (11.7-16.9) 05/02/19 07:45 Hct 46.0 % (35.4-49) 05/02/19 07:45 MCV 94.6 fl (80-96) 05/02/19 07:45 MCH 32.4 pg (25.7-33.7) 05/02/19 07:45 MCHC 34.2 g/dl (32.0-35.9) 05/02/19 07:45 RDW 13.7 % (11.9-15.9) 05/02/19 07:45 Plt Count 231 K/MM3 (134-434) 05/02/19 07:45 MPV 8.1 fl (7.5-11.1) 05/02/19 07:45 Sodium 137 mmol/L (136-145) 05/02/19 07:45 Potassium 4.3 mmol/L (3.5-5.1) 05/02/19 07:45 Chloride 100 mmol/L (98-107) 05/02/19 07:45 Carbon Dioxide 31 mmol/L (21-32) 05/02/19 07:45 Anion Gap 6 MMOL/L (8-16) L 05/02/19 07:45 BUN 8.8 mg/dL (7-18) 05/02/19 07:45 Creatinine 1.0 mg/dL (0.55-1.3) 05/02/19 07:45 Est GFR (CKD-EPI)AfAm 89.86 05/02/19 07:45 Est GFR (CKD-EPI)NonAf 77.54 05/02/19 07:45 Random Glucose 118 mg/dL (74-106) H 05/02/19 07:45 Calcium 9.0 mg/dL (8.5-10.1) 05/02/19 07:45 Total Bilirubin 1.0 mg/dL (0.2-1) 05/02/19 07:45 AST 38 U/L (15-37) H 05/02/19 07:45 ALT 47 U/L (13-61) 05/02/19 07:45 Alkaline Phosphatase 71 U/L (45-117) 05/02/19 07:45 Total Protein 7.1 g/dl (6.4-8.2) 05/02/19 07:45 Albumin 3.4 g/dl (3.4-5.0) 05/02/19 07:45 RPR Titer Nonreactive (NONREACTIVE) 05/02/19 07:45 Assessment: 05/04/19 14:14 Aox3 no acute distress EENT WNL no adventitious breath sounds full ROM no gait abnormality withdrawal sx Plan: increase PO fluids continue detox d/c in AM Patient wishes to attend outpatient program upon d/c continue to monitor
[2019-05-04] MEDS: THIAMINE HCL 100 MG TABLET (FP) PO SCH (22:18)
[2019-05-04] MEDS: MELATONIN 5 MG TABLETS PO PRN (22:18)
[2019-05-05] MEDS ORDERED: chlordiazePOXIDE HCL 10 MG CAPSULE PO ONE (05:00)
[2019-05-05 09:32] VITALS: BP 143/84; PULSE 71; TEMP 97.7
[2019-05-05] MEDS: HYDROCHLOROTHIAZIDE 12.5 MG CAPSULE (FP) PO SCH (10:38)
[2019-05-05] MEDS: PRENATAL VITAMINS W/ FOLIC ACID TABLET (FP) PO SCH (10:38)
[2019-05-05] MEDS: NICOTINE 14 MG/24 HOURS TOPICAL PATCH TD SCH (10:38)
[2019-05-05] MEDS: LISINOPRIL 10 MG TABLET (FP) PO SCH (10:38)
--- NOTE | 2019-05-05 18:28 | DS ---
[facility] Detox Discharge Summary Admission Date: 05/01/19 Discharge Date: 05/05/19 - History Present History: Alcohol Dependence, Cannabis Dependence Additional Comments: PATIENT WILL ATTEND LOCAL 12-STEP / NA / AA OUTPATIENT SUPPORT GROUP MEETINGS FOR AFTERCARE. PATIENT WAS DISCHARGED FROM DETOX UNIT IN STABLE MEDICAL CONDITION. Pertinent Past History: HTN, Hep C (Treated), History Of elevated Liver Function Tests, Elevated AST Level. - Physical Exam Results Vital Signs: Vital Signs Temperature 97.7 F 05/05/19 09:31 Pulse Rate 71 05/05/19 09:31 Respiratory Rate 71 H 05/05/19 09:31 Blood Pressure 143/84 05/05/19 09:31 O2 Sat by Pulse Oximetry (%) Pertinent Admission Physical Exam Findings: WITHDRAWAL SYMPTOMS. Laboratory Tests 05/02/19 05/02/19 05/02/19 07:45 07:45 07:45 WBC 6.7 RBC 4.86 Hgb 15.7 Hct 46.0 MCV 94.6 MCH 32.4 MCHC 34.2 RDW 13.7 Plt Count 231 MPV 8.1 Sodium 137 Potassium 4.3 Chloride 100 Carbon Dioxide 31 Anion Gap 6 L BUN 8.8 Creatinine 1.0 Est GFR (CKD-EPI)AfAm 89.86 Est GFR (CKD-EPI)NonAf 77.54 Random Glucose 118 H Calcium 9.0 Total Bilirubin 1.0 AST 38 H ALT 47 Alkaline Phosphatase 71 Total Protein 7.1 Albumin 3.4 RPR Titer Nonreactive LABS NOTED. - Treatment Hospital Course: Detox Protocol Followed, Detoxed Safely, Responded well, Discharged Condition Good Patient has Accepted a Rehab Referral to: PT. WILL ATTEND LOCAL 12-STEP/NA/AA OUTPATIENT SUPPORT GROUP MEETINGS. - Medication Discharge Medications: Ambulatory Orders Lisinopril/Hydrochlorothiazide [Lisinopril-Hctz 10-12.5 mg Tab] 1 each PO DAILY 02/20/18 - Diagnosis (1) Alcohol dependence with uncomplicated withdrawal Status: Acute (2) Hypertension Status: Chronic Qualifiers: Hypertension type: essential hypertension Qualified Code(s): I10 - Essential (primary) hypertension (3) Cannabis dependence Status: Chronic - AMA Did Patient Leave Against Medical Advice: No [facility] CIWA - CIWA Score Nausea/Vomitin-No Nausea/No Vomiting Muscle Tremors: None Anxiety: 1-Mildly Anxious Agitation: 1-Slight > Activity Paroxysmal Sweats: No Perspiration Orientation: 0-Oriented Tacttile Disturbances: 0-None Auditory Disturbances: 0-None Visual Disturbances: 0-None Headache: 0-None Present CIWA-Ar Total Score: 2
== END 2019-05-05 09:40 | disposition home or self-care (01) | DRG 897 ==
LOC: YASAS 13:07 → Y3N 20:46
PROVIDERS: ADMIT Surgery; ATTEND Surgery
PROC: HZ2ZZZZ Detoxification Services for Substance Abuse Treatment (ICD-10-PCS; principal; 2019-05-01)
DX: F10.230 Alcohol dependence with withdrawal, uncomplicated (principal); F12.20 Cannabis dependence, uncomplicated; F17.210 Nicotine dependence, cigarettes, uncomplicated; I10 Essential (primary) hypertension; R94.5 Abnormal results of liver function studies; Z86.19 Personal history of other infectious and parasitic diseases
CPT/HCPCS: 36415; 80053; 85027; 86593